=== PATIENT | male | born 1945 | race Caucasian/White ===

== ENCOUNTER 2018-05-23 11:10 | Outpatient (CLI) | payer MEDICARE, MEDICAID, SELFPAY ==
--- NOTE | 2018-05-23 11:00 | DI.RAD_ITS ---
SYMPTOM/DIAGNOSIS: LT SHOULDER PAIN LEFT SHOULDER: Three views. No priors. The left clavicle is superiorly located relative to the acromion consistent with an acromioclavicular ligament tear, type III. There are well corticated osseous fragments inferior to the distal clavicle. These appear old and may represent old injury. There are hypertrophic changes seen at the acromioclavicular joint along the undersurface of the acromion and at the glenohumeral joint. No acute fracture is seen. Vascular calcifications are seen in the soft tissues. Sternal wires are present. There does appear to be a prior CABG. IMPRESSION: Grade III left AC joint separation. Degenerative changes of the left shoulder.
== END 2018-05-23 11:30 ==
PROVIDERS: PCP Family Medicine; Referring Provider Family Medicine; Visit Provider Student in an Organized Health Care Education/Training Program
DX: M25.512 Pain in left shoulder (principal); S43.102A Unspecified dislocation of left acromioclavicular joint, initial encounter; M19.012 Primary osteoarthritis, left shoulder; M75.42 Impingement syndrome of left shoulder; X58.XXXA Exposure to other specified factors, initial encounter; E11.9 Type 2 diabetes mellitus without complications
CPT/HCPCS: 20610; 99204; 99214; 73030; J1040

== ENCOUNTER 2018-07-20 13:43 | Outpatient (REF) | payer MEDICARE, MEDICAID, SELFPAY ==
[2018-07-20 20:09] LABS: Absolute Basophil Count 0.03 k/cumm (0.0-0.2); Absolute Eosinophil Count 0.11 k/cumm (0.0-0.7); Absolute Lymphocyte Count 0.91 k/cumm (1.2-3.4); Absolute Monocyte Count 0.31 k/cumm (0.11-0.7); Absolute Neutrophil Count 3.64 k/cumm (1.2-6.7); Basophils % 0.6; Eosinophils % 2.2; HCT 41.6 % (40.0-50.0); HGB 14.1 g/dL (13.5-17.5); Lymphocytes % 18.2; Mean Corp. HGB Concentration 33.9 g/dL (32.0-36.0); Mean Corpuscular Volume 94.3 fL (80-95); Mean Platelet Volume 10.1 fL (8.0-11.0); Monocytes % 6.2; Neutrophils % 72.8; Platelet Count 147 x1000/uL (130-400); RBC 4.41 m/cumm (4.50-6.00); RBC Distribution Width 13.8 % (11.8-14.1)
[2018-07-20 20:31] LABS: Hemoglobin A1C 6.1 % (4.5-6.2)
[2018-07-20 20:38] LABS: ALT 18 U/L (12-78); AST 16 U/L (15-37); Albumin 3.5 g/dL (3.4-5.0); Alkaline Phosphatase 139 U/L (46-116); Anion Gap 9.3 mmol/L (3-11); BUN 22 mg/dL (7-18); Bilirubin, Total 0.7 mg/dL (0.2-1.0); CO2 27.7 mmol/L (21.0-32.0); CREATININE 1.06 mg/dL (0.70-1.30); Chloride 104 mmol/L (98-107); Glucose 118 mg/dL (70-100); Magnesium 1.7 mg/dL (1.8-2.4); Potassium 4.3 mmol/L (3.5-5.1); Sodium 141 mmol/L (136-145); Total Protein 7.3 g/dL (6.4-8.2)
== END 2018-07-20 14:03 ==
LOC: NCHCN 13:43
PROVIDERS: PCP Family Medicine; Visit Provider Specialist/Technologist Athletic Trainer
DX: D69.6 Thrombocytopenia, unspecified (principal); D63.1 Anemia in chronic kidney disease; I10 Essential (primary) hypertension; E11.42 Type 2 diabetes mellitus with diabetic polyneuropathy
CPT/HCPCS: 80053; 83036; 83735; 85025

== ENCOUNTER → 2018-12-21 08:27 | Outpatient (BNVA) | payer MEDICARE, MEDICAID, SELFPAY | PROVIDERS: PCP Family Medicine; Referring Provider Specialist/Technologist Athletic Trainer; Visit Provider Student in an Organized Health Care Education/Training Program | DX: M75.42 Impingement syndrome of left shoulder (principal); S43.102D Unspecified dislocation of left acromioclavicular joint, subsequent encounter; X58.XXXD Exposure to other specified factors, subsequent encounter | CPT/HCPCS: 99213 ==

== ENCOUNTER 2019-02-13 14:57 | Outpatient (REF) | payer MEDICARE, SELFPAY ==
[2019-02-13 22:01] LABS: Abs Immature Grans 0.01 k/cumm (0.0-0.09); Absolute Basophil Count 0.04 k/cumm (0.0-0.2); Absolute Eosinophil Count 0.16 k/cumm (0.0-0.7); Absolute Monocyte Count 0.31 k/cumm (0.11-0.7); Absolute Neutrophil Count 2.61 k/cumm (1.2-6.7); Eosinophils % 3.9; HGB 14.2 g/dL (13.5-17.5); Immature Grans % 0.2; Lymphocytes % 24.2; Mean Corp. HGB Concentration 33.8 g/dL (32.0-36.0); Mean Corpuscular Hemoglobin 32.1 pg (27.0-33.0); Mean Corpuscular Volume 94.8 fL (80-95); Mean Platelet Volume 10.5 fL (8.0-11.0); Monocytes % 7.5; Neutrophils % 63.2; Platelet Count 123 x1000/uL (130-400); RBC 4.43 m/cumm (4.50-6.00); RBC Distribution Width 14.7 % (11.8-14.1); White Blood Cell Count 4.13 k/cumm (4.4-10.8)
[2019-02-13 22:12] LABS: ALT 13 U/L (12-78); AST 12 U/L (15-37); Albumin 3.5 g/dL (3.4-5.0); Alkaline Phosphatase 150 U/L (46-116); Anion Gap 12.3 mmol/L (3-11); BUN 18 mg/dL (7-18); CO2 24.7 mmol/L (21.0-32.0); CREATININE 1.09 mg/dL (0.70-1.30); Calcium 8.9 mg/dL (8.5-10.1); Chloride 107 mmol/L (98-107); Glucose 90 mg/dL (70-100); HDL Cholesterol 35 mg/dL (40-60); LDL CHOLESTEROL 137 mg/dL (<100); Potassium 4.5 mmol/L (3.5-5.1); Sodium 144 mmol/L (136-145); Total Protein 7.5 g/dL (6.4-8.2)
[2019-02-13 22:47] LABS: Hemoglobin A1C 6.5 % (4.5-6.2)
== END 2019-02-13 15:17 ==
LOC: NCHCN 14:57
PROVIDERS: PCP Family Medicine; Visit Provider Nurse Practitioner Family
DX: I73.9 Peripheral vascular disease, unspecified (principal); E11.42 Type 2 diabetes mellitus with diabetic polyneuropathy; J44.9 Chronic obstructive pulmonary disease, unspecified; N18.3 Chronic kidney disease, stage 3 (moderate); G54.7 Phantom limb syndrome without pain
CPT/HCPCS: 80053; 83721; 83036; 83718; 85025

== ENCOUNTER 2019-02-15 00:25 | Outpatient (CLI) | payer MEDICARE, MEDICAID, SELFPAY ==
--- NOTE | 2019-02-15 07:00 | MERGE_ITS ---
*[facility]* *[facility]* [address] [place] [address] Date of study: 02/15/2019 Transthoracic Echocardiography M-mode, complete 2D, complete spectral Doppler, and color Doppler *STUDY CONCLUSIONS* Summary: 1. Left ventricle: The cavity size was normal. There was mild asymmetric hypertrophy of the septum. Systolic function was severely reduced. The estimated ejection fraction was 25-30%. Diffuse hypokinesis. Akinesis and scarring of the inferolateral and inferior myocardium. Doppler parameters are consistent with high ventricular filling pressure. 2. Aortic valve: A bioprosthesis was present. Peak velocity (S): 2.1m/sec. Mean gradient (S): 11.1mm Hg. 3. Mitral valve: Mildly calcified annulus. Moderately thickened, moderately calcified leaflets. There was mild regurgitation. 4. Left atrium: The atrium was severely dilated. 5. Right ventricle: The cavity size was moderately dilated. Wall thickness was normal. Systolic function was mildly to moderately reduced by visual assessment. 6. Right atrium: The atrium was moderately dilated. 7. Atrial septum: There was a small patent foramen ovale. There was a small kwzp-jt-jcehs shunt. 8. Pulmonary arteries: Pulmonary systolic pressure was severely increased, in the range of 70mm Hg to 75mm Hg. *PATIENT PRESENTATION* Height: 182.9cm (72in ) S/D Pressure: 131 / 81 Weight: 82.6kg (181.6lb ) BSA: 2.05m^2 Test start time: 07:15 AM. Test stop time: 08:20 AM. PERFORMING Unknown PERFORMING Nv REFERRING Robinson Faye MAINTENANCE MECHANIC Kathy Grijalvape, RT (R)(CT), RDCS *PROCEDURE DATA* Procedure information: The patient was identified by two identifiers. This study was interpreted by [facility] [place] [facility]. Pertinent images and digital data are archived for permanent storage and are available for subsequent review. No prior study was available for comparison. Study status: Routine. Transthoracic echocardiography. M-mode, complete 2D, complete spectral Doppler, and color Doppler. A Transthoracic Echocardiogram was performed. Scanning was performed from the parasternal, apical, subcostal, and suprasternal notch acoustic windows. Images were obtained using an [id number] cardiac ultrasound machine. Image quality was adequate. Study completion: The patient tolerated the procedure well. There were no complications. History: PMH: Cardiomyopathy I 25.5. *CARDIAC ANATOMY* Left ventricle: The cavity size was normal. There was mild asymmetric hypertrophy of the septum. Systolic function was severely reduced. The estimated ejection fraction was 25-30%. Diffuse hypokinesis. Regional wall motion abnormalities: Akinesis and scarring of the inferolateral and inferior myocardium. Doppler parameters are consistent with high ventricular filling pressure. Aortic valve: A bioprosthesis was present. Mobility was not restricted. Doppler: Transvalvular velocity was within the normal range. There was no stenosis. There was no significant regurgitation. VTI ratio of LVOT to aortic valve: 0.41. Valve area (VTI): 1.3cm^2. Indexed valve area (VTI): 0.6cm^2/m^2. Peak velocity ratio of LVOT to aortic valve: 0.47. Valve area (Vmax): 1.5cm^2. Indexed valve area (Vmax): 0.7cm^2/m^2. Mean velocity ratio of LVOT to aortic valve: 0.44. Valve area (Vmean): 1.4cm^2. Indexed valve area (Vmean): 0.7cm^2/m^2. Mean gradient (S): 11.1mm Hg. Peak gradient (S): 17.2mm Hg. Aorta: Aortic root: The aortic root was at upper normal limits. Ascending aorta: The ascending aorta was normal in size. Mitral valve: Mildly calcified annulus. Moderately thickened, moderately calcified leaflets. Mobility was not restricted. Doppler: Transvalvular velocity was within the normal range. There was no evidence for stenosis. There was mild regurgitation. Valve area by pressure half-time: 4.5cm^2. Indexed valve area by pressure half-time: 2.2cm^2/m^2. Peak gradient (D): 6.8mm Hg. Left atrium: The atrium was severely dilated. Atrial septum: There was a small patent foramen ovale. There was a small [id number]-[id number] shunt. Right ventricle: The cavity size was moderately dilated. Wall thickness was normal. Systolic function was mildly to moderately reduced by visual assessment. Pulmonic valve: Structurally normal valve. Doppler: Transvalvular velocity was within the normal range. There was no evidence for stenosis. There was mild regurgitation. Peak gradient (S): 19.5mm Hg. Tricuspid valve: Structurally normal valve. Doppler: Transvalvular velocity was within the normal range. There was no evidence for stenosis. There was mild regurgitation. Pulmonary artery: Pulmonary systolic pressure was severely increased, in the range of 70mm Hg to 75mm Hg. Right atrium: The atrium was moderately dilated. Pericardium: There was no pericardial effusion. Systemic veins: Inferior vena cava: Well visualized. The vessel was patent and normal in size. The respirophasic diameter changes were blunted (less than 50%). Measurements Left ventricle Value Reference LV ID, ED, PLAX 5.3 cm 3.5 - 6.0 LV ID, ES, PLAX (H) 4.6 cm 2.1 - 4.0 LV PW thickness, ED, PLAX 0.8 cm LV end-diastolic volume, 1-p A2C 139 ml LV ejection fraction, 1-p A2C 27 % LV end-diastolic volume, 1-p A4C 127 ml LV ejection fraction, 1-p A4C 31 % LV e', lateral 0.054 m/sec LV E/e', lateral 24 LV e', medial 0.048 m/sec LV E/e', medial 27 LV e', average 0.051 m/sec LV E/e', average 26 Ventricular septum Value Reference IVS thickness, ED, PLAX 1.3 cm LVOT Value Reference LVOT ID, A-P 2.0 cm LVOT area 3.2 cm^2 LVOT peak velocity, S 0.98 m/sec LVOT mean velocity, S 0.71 m/sec LVOT VTI, S 21.5 cm LVOT peak gradient, S 3.8 mm Hg LVOT mean gradient, S 2.3 mm Hg Stroke volume (SV), LVOT DP 69 ml Stroke index (SV/bsa), LVOT DP 33 ml/m^2 Aortic valve Value Reference Aortic valve peak velocity, S 2.1 m/sec Aortic valve mean velocity, S 1.6 m/sec Aortic valve VTI, S 52.0 cm Aortic mean gradient, S 11.1 mm Hg Aortic peak gradient, S 17.2 mm Hg VTI ratio, LVOT/AV 0.41 Aortic valve area, VTI 1.3 cm^2 Velocity ratio, peak, LVOT/AV 0.47 Aortic valve area, peak velocity 1.5 cm^2 Velocity ratio, mean, LVOT/AV 0.44 Aortic valve area, mean velocity 1.4 cm^2 Aortic valve area/bsa, mean velocity 0.7 cm^2/m^2 Aorta Value Reference Aortic root ID, ED 3.7 cm Ascending aorta ID, A-P, S 3.4 cm RVOT Value Reference RVOT VTI, S 13.4 cm Left atrium Value Reference LA ID, A-P, ES 5.4 cm LA ID/bsa, A-P (H) 2.6 cm/m^2 <=2.2 LA volume/bsa, ES, 1-p A4C 50 ml/m^2 LA volume, ES, 2-p 102 ml LA volume/bsa, ES, 2-p 50 ml/m^2 LA/aortic root ratio 1.43 Mitral valve Value Reference Mitral E-wave peak velocity 1.3 m/sec Mitral A-wave peak velocity 0.39 m/sec Mitral deceleration time 170 ms 150 - 230 Mitral pressure half-time 49 ms Mitral peak gradient, D 6.8 mm Hg Mitral E/A ratio, peak 3.38 Mitral valve area, PHT, DP 4.5 cm^2 Pulmonary veins Value Reference Pulmonary vein peak velocity, S 0.15 m/sec Pulmonary vein peak velocity, D 0.65 m/sec Pulmonary vein velocity ratio, peak, 0.24 S/D Tricuspid valve Value Reference Tricuspid regurg peak velocity 4.1 m/sec Tricuspid peak RV-RA gradient 66.4 mm Hg Right atrium Value Reference RA area, ES, A4C (H) 23.3 cm^2 8.3 - 19.5 Pulmonic valve Value Reference Pulmonic peak gradient, S 19.5 mm Hg Pulmonic regurg velocity, ED 2.21 m/sec Pulmonic regurg gradient, ED 20 mm Hg Legend: (L) and (H) good values outside specified reference range. I have personally reviewed the images and have reviewed and edited the reported findings. Electronically signed by Chance Boykin 02/15/2019 11:12
== END 2019-02-15 00:45 ==
PROVIDERS: PCP Nurse Practitioner Family; Visit Provider Specialist/Technologist Athletic Trainer
DX: I25.5 Ischemic cardiomyopathy (principal); I10 Essential (primary) hypertension; E78.5 Hyperlipidemia, unspecified; E11.9 Type 2 diabetes mellitus without complications; Z95.2 Presence of prosthetic heart valve
CPT/HCPCS: 93306

== ENCOUNTER 2019-03-08 15:06 | Outpatient (REF) | payer MEDICARE, MEDICAID, SELFPAY ==
[2019-03-08 22:47] LABS: ALT 17 U/L (12-78); AST 11 U/L (15-37); Albumin 3.5 g/dL (3.4-5.0); Alkaline Phosphatase 146 U/L (46-116); Anion Gap 10.3 mmol/L (3-11); BUN 25 mg/dL (7-18); Bilirubin, Direct 0.37 mg/dL (0.00-0.20); CO2 24.7 mmol/L (21.0-32.0); CREATININE 1.17 mg/dL (0.70-1.30); Calcium 9.2 mg/dL (8.5-10.1); Chloride 108 mmol/L (98-107); Glucose 148 mg/dL (70-100); Lipase 44 U/L (73-393); Potassium 4.3 mmol/L (3.5-5.1); Sodium 143 mmol/L (136-145); Total Protein 7.3 g/dL (6.4-8.2)
[2019-03-08 22:52] LABS: Abs Immature Grans 0.01 k/cumm (0.0-0.09); Absolute Basophil Count 0.03 k/cumm (0.0-0.2); Absolute Eosinophil Count 0.07 k/cumm (0.0-0.7); Absolute Lymphocyte Count 0.73 k/cumm (1.2-3.4); Absolute Monocyte Count 0.47 k/cumm (0.11-0.7); Absolute Neutrophil Count 5.31 k/cumm (1.2-6.7); Basophils % 0.5; Eosinophils % 1.1; HCT 42.8 % (40.0-50.0); HGB 14.3 g/dL (13.5-17.5); Immature Grans % 0.2; Mean Corp. HGB Concentration 33.4 g/dL (32.0-36.0); Mean Corpuscular Hemoglobin 32.2 pg (27.0-33.0); Mean Corpuscular Volume 96.4 fL (80-95); Monocytes % 7.1; Neutrophils % 80.1; Platelet Count 122 x1000/uL (130-400); RBC 4.44 m/cumm (4.50-6.00); RBC Distribution Width 14.7 % (11.8-14.1); White Blood Cell Count 6.62 k/cumm (4.4-10.8)
== END 2019-03-08 15:26 ==
LOC: NCHCN 15:06
PROVIDERS: PCP Nurse Practitioner Family; Visit Provider Nurse Practitioner Family
DX: R10.9 Unspecified abdominal pain (principal)
CPT/HCPCS: 80048; 80076; 83690; 85025

== ENCOUNTER → 2019-03-22 12:45 | Outpatient (BNVA) | payer MEDICARE, MEDICAID, SELFPAY | PROVIDERS: PCP Nurse Practitioner Family; Visit Provider Student in an Organized Health Care Education/Training Program | DX: I25.5 Ischemic cardiomyopathy (principal); I50.22 Chronic systolic (congestive) heart failure; I25.10 Atherosclerotic heart disease of native coronary artery without angina pectoris; Z95.5 Presence of coronary angioplasty implant and graft; Z95.1 Presence of aortocoronary bypass graft; I73.9 Peripheral vascular disease, unspecified; I11.0 Hypertensive heart disease with heart failure; Z72.0 Tobacco use; E11.42 Type 2 diabetes mellitus with diabetic polyneuropathy; E78.2 Mixed hyperlipidemia; J44.9 Chronic obstructive pulmonary disease, unspecified | CPT/HCPCS: 99205; 99215 ==

== ENCOUNTER 2019-03-27 00:09 | Outpatient (CLI) | payer MEDICARE, SELFPAY ==
--- NOTE | 2019-03-27 07:03 | DI.NM_ITS ---
SYMPTOMS/DIAGNOSIS: ISCHEMIC CARDIOMYOPATHY, I25.5 MPI STRESS TEST: Please see report dated 03/30/19 for complete results of this examination. The MPI was performed in two days 03/27/19 and 03/30/19.
== END 2019-03-27 00:29 ==
PROVIDERS: PCP Nurse Practitioner Family; Visit Provider Student in an Organized Health Care Education/Training Program
DX: I25.5 Ischemic cardiomyopathy (principal); I25.2 Old myocardial infarction; R94.30 Abnormal result of cardiovascular function study, unspecified; Z95.3 Presence of xenogenic heart valve

== ENCOUNTER 2019-03-30 00:09 | Outpatient (CLI) | payer MEDICARE, MEDICAID, SELFPAY ==
--- NOTE | 2019-03-30 09:30 | MERGEMPI_ITS ---
*[facility]* *[facility]* [address] [place] [address] Myocardial Perfusion Imaging - SPECT Regadenoson Date of study: 03/30/2019 *PATIENT PRESENTATION* Height: 182.9cm (72in) Blood Pressure: Weight: 86.4kg (190lb) BSA: 2.1m^2 Referring physician: Chance Boykin Ordering physician: Chance Boykin Impressions: Abnormal study after pharmacologic stress. Summary: 1. Myocardial perfusion imaging: There is a moderate sized, moderately intense, predominantly fixed defect involving the inferolateral wall(s). This suggests moderate myocardial infarction in the distribution of the left circumflex coronary artery. 2. The calculated left ventricular ejection fraction after stress: 19%. LV global systolic function is severely reduced. Diffuse left ventricular regional motion abnormalities. There is hypokinesis involving the inferior and inferolateral wall(s) of the left ventricle. Indication: I25.5. History: REASON FOR TESTING: REFERRED AFTER ECHO SHOWING POOR HEART EF. PMH: NSTEMI WITH CABG X3V AND STENTING- EF 25-30%, PVD, AORTIC VALVE REPLACENENT, XENOGENIC HEART VALVE, HYPERTENSION, DIABETES WITH POLYNEUROPATHY, HYPERLIPIDEMIA, CKD WITH ANEMIA, ASHD, CARDIOMYOPATHY-ISCHEMIC AND DILATED, COPD, DEPRESSION, OSTEOMYELITIS, RIGHT BELOW THE KNEE AMPUTATION, THROMBOCYTOPENIA. FAMILY HX: BROTHER-ENLARGED HEART. SMOKING: CURRENT DAILY SMOKER 1/2 PPD X 64 YEARS. EXCERCISE: NO REGULAR EXCERCISE. PMH: COPD. Risk factors: Current tobacco use. Hypertension. Diabetes mellitus. Dyslipidemia. Cholesterol: 133mg/dl. HDL: 35mg/dl. LDL: 137mg/dl. Triglycerides: 108mg/dl. Peripheral vascular disease. ALLERGIES: SULFA MEDICATIONS: ASPIRIN 81 MG DAILY, BUMETANIDE 2 MG DAILY, CARVEDILOL 12.5 MG BID, NABUMETONE 500 MG BID, NITROGLYCERIN0.4 MG SL NEEDED, OXYCODONE 5 MG Q4H PRN, ASCORBIC ACID 500 MG DAILY, GABAPENTIN 300 MG DAILY, LOSARTAN 12.5 MG DAILY, OMEPRAZOLE 40 MG DAILY, POLYETHYLENE GLYCOL 17 GM DAILY, ROSUVSTATIN 20 MG HS. Imaging Technique: Protocol: Regadenoson. Acquisition: Gated SPECT; 1 day - rest/stress. The patient was imaged in the supine position. Attenuation correction used. Isotope administration: - Rest. Tc[99m]-sestamibi. Dose: 10.4mCi. Injection time: 08:35 AM. Injection to stress time: 00:45. - Stress. Tc[99m]-sestamibi. Dose: 33mCi. Injection time: 09:45 AM. 1-2 min before end of exercise Baseline ECG: LAST EKG 07/03/2017- SINUS RHYTHM HR 92. TODAY'S EKG-SINUS RHYTHM 1ST DEGREE BLOCK. HR 73. Stress protocol: +--------+--+ + + !Stage !HR!BP (mmHg) !Comments ! +--------+--+ + + !Baseline!73!124/80 (95)! ! +--------+--+ + + !1 min !71!118/78 (91)!Inject Regadenoson.! +--------+--+ + + !3 min !79!110/70 (83)! ! +--------+--+ + + !6 min !79!102/74 (83)! ! +--------+--+ + + !9 min !78!100/70 (80)! ! +--------+--+ + + * Stress results: The rate-pressure product for the peak heart rate and blood pressure was 9052mm Hg/min. Stress ECG: MEDICATION TESTING ENDED IN 9 MINS EFFECT OF MEDICATION NO LONGER PRESENT. MAX HR WAS 81, WITH A NORMAL BLOOD PRESSURE REPSONSE. ECTOPY: MULTI- FOCAL PVC'S NOTED THROUGHOUT THE TEST. NO CHANGE NOPTED IN FREQUENCY. ANGINA: NO REPORTED CHEST PAIN OR PRESSURE. ISCHEMIA: NO ISCHEMIC CHANGES NOTED. Myocardial perfusion: Imaging information: gated. The left ventricle is dilated. There is a moderate sized, moderately intense, predominantly fixed defect involving the inferolateral wall(s). This suggests moderate myocardial infarction in the distribution of the left circumflex coronary artery. Ventricular Function (Wall Motion): The calculated left ventricular ejection fraction after stress: 19%. LV global systolic function is severely reduced. Diffuse left ventricular regional motion abnormalities. There is hypokinesis involving the inferior and inferolateral wall(s) of the left ventricle. Study data: Paola Segundo MD supervised and was readily available during the procedure. This study was interpreted by [facility]. Study status: Routine. Consent: The risks, benefits, and alternatives to the procedure were explained to the patient and informed consent was obtained. Procedure: Initial setup. A baseline ECG was recorded. Surface ECG leads and manual cuff blood pressure measurements were monitored. Heart sounds: Normal. Lung sounds: Normal. Regadenoson stress test. Stress testing was performed, with regadenoson by intravenous bolus, for a total dose of 0.4mgover 10.00sec, followed by a 5ml saline flush. The infusion was terminated due to per protocol. The patient was unable to exercise due to deconditioning and or frailty. Study completion: All catheters inserted during the procedure were removed. The patient tolerated the procedure well and was discharged from the lab. Discharge: The patient left the laboratory in stable condition. Birthdate: Patient birthdate: 1945. Sex: Gender: male. Study date: Study date: 03/30/2019. Study time: 00:01 AM. Signature Documentation: - The imaging portion of this study was interpreted by Nuclear Bag Machine Set Up Operator Paola Segundo MD. - The imaging portion of this study was interpreted by Nuclear Radiologist Delroy Graf MD. - The Stress ECG portion of this study was interpreted by Paola Segundo MD. Electronically signed by Paola Segundo 03/30/2019 15:30
[2019-03-30] MEDS: Regadenoson 0.4 MG/5 ML SYR IVP (12:38)
== END 2019-03-30 00:29 ==
PROVIDERS: PCP Nurse Practitioner Family; Visit Provider Student in an Organized Health Care Education/Training Program
DX: I25.5 Ischemic cardiomyopathy (principal); R94.30 Abnormal result of cardiovascular function study, unspecified; I25.2 Old myocardial infarction; Z95.3 Presence of xenogenic heart valve; I50.22 Chronic systolic (congestive) heart failure; I10 Essential (primary) hypertension; E78.5 Hyperlipidemia, unspecified; F17.200 Nicotine dependence, unspecified, uncomplicated
CPT/HCPCS: 78452; 93016; 93018; 93017; J2785

== ENCOUNTER → 2019-04-05 09:48 | Outpatient (BNVA) | payer MEDICARE, MEDICAID, SELFPAY | PROVIDERS: PCP Nurse Practitioner Family; Visit Provider Student in an Organized Health Care Education/Training Program | DX: I25.5 Ischemic cardiomyopathy; Z95.5 Presence of coronary angioplasty implant and graft; I73.9 Peripheral vascular disease, unspecified; Z95.3 Presence of xenogenic heart valve; I10 Essential (primary) hypertension; E11.42 Type 2 diabetes mellitus with diabetic polyneuropathy; E78.5 Hyperlipidemia, unspecified; Z66 Do not resuscitate; J44.9 Chronic obstructive pulmonary disease, unspecified | CPT/HCPCS: 99214 ==

== ENCOUNTER → 2019-05-19 08:42 | Outpatient (BNVA) | payer MEDICARE, MEDICAID, SELFPAY | PROVIDERS: PCP Nurse Practitioner Family; Referring Provider Nurse Practitioner Family; Visit Provider Internal Medicine Cardiovascular Disease | DX: I25.5 Ischemic cardiomyopathy (principal); E11.42 Type 2 diabetes mellitus with diabetic polyneuropathy; I12.9 Hypertensive chronic kidney disease with stage 1 through stage 4 chronic kidney disease, or unspecified chronic kidney disease; N18.9 Chronic kidney disease, unspecified; E11.22 Type 2 diabetes mellitus with diabetic chronic kidney disease; J44.9 Chronic obstructive pulmonary disease, unspecified | CPT/HCPCS: 99204; 99215 ==

== ENCOUNTER 2019-06-20 10:13 | Outpatient (REF) | payer MEDICARE, MEDICAID, SELFPAY ==
[2019-06-20 21:59] LABS: Abs Immature Grans 0.01 k/cumm (0.0-0.09); Absolute Basophil Count 0.03 k/cumm (0.0-0.2); Absolute Eosinophil Count 0.15 k/cumm (0.0-0.7); Absolute Lymphocyte Count 0.86 k/cumm (1.2-3.4); Absolute Monocyte Count 0.38 k/cumm (0.11-0.7); Absolute Neutrophil Count 3.02 k/cumm (1.2-6.7); Basophils % 0.7; Eosinophils % 3.4; HCT 40.3 % (40.0-50.0); HGB 13.4 g/dL (13.5-17.5); Immature Grans % 0.2; Lymphocytes % 19.3; Mean Corp. HGB Concentration 33.3 g/dL (32.0-36.0); Mean Corpuscular Hemoglobin 31.6 pg (27.0-33.0); Mean Platelet Volume 10.7 fL (8.0-11.0); Monocytes % 8.5; Neutrophils % 67.9; Platelet Count 117 x1000/uL (130-400); RBC 4.24 m/cumm (4.50-6.00); RBC Distribution Width 14.7 % (11.8-14.1); White Blood Cell Count 4.45 k/cumm (4.4-10.8)
[2019-06-20 22:28] LABS: Iron 104 ug/dL (50-175); Total Iron Binding Capacity 253 ug/dL (250-450); Transferrin Sat 41 % (20-55)
== END 2019-06-20 10:33 ==
LOC: NCHCN 10:13
PROVIDERS: PCP Nurse Practitioner Family; Visit Provider Nurse Practitioner Family
DX: E11.42 Type 2 diabetes mellitus with diabetic polyneuropathy (principal); G54.6 Phantom limb syndrome with pain; L98.9 Disorder of the skin and subcutaneous tissue, unspecified; L29.9 Pruritus, unspecified
CPT/HCPCS: 83540; 83550; 85025

== ENCOUNTER → 2019-10-16 09:46 | Outpatient (BNVA) | payer MEDICARE, MEDICAID, SELFPAY | PROVIDERS: PCP Nurse Practitioner Family; Referring Provider Nurse Practitioner Family; Visit Provider Internal Medicine Cardiovascular Disease | DX: I25.5 Ischemic cardiomyopathy (principal); Z95.5 Presence of coronary angioplasty implant and graft; Z95.1 Presence of aortocoronary bypass graft; E11.42 Type 2 diabetes mellitus with diabetic polyneuropathy; E11.22 Type 2 diabetes mellitus with diabetic chronic kidney disease; N18.3 Chronic kidney disease, stage 3 (moderate); I12.9 Hypertensive chronic kidney disease with stage 1 through stage 4 chronic kidney disease, or unspecified chronic kidney disease | CPT/HCPCS: 99214 ==

== ENCOUNTER 2019-12-15 09:16 | Outpatient (REF) | payer MEDICARE, MEDICAID, SELFPAY ==
[2019-12-15 18:57] LABS: HCT 40.3 % (40.0-50.0); HGB 13.2 g/dL (13.5-17.5); Mean Corp. HGB Concentration 32.8 g/dL (32.0-36.0); Mean Corpuscular Hemoglobin 32.2 pg (27.0-33.0); Mean Corpuscular Volume 98.3 fL (80-95); Mean Platelet Volume 10.2 fL (8.0-11.0); Platelet Count 107 x1000/uL (130-400); RBC Distribution Width 13.5 % (11.8-14.1); White Blood Cell Count 4.76 k/cumm (4.4-10.8)
[2019-12-15 19:36] LABS: ALT 37 U/L (16-63); AST 32 U/L (15-37); Albumin 3.4 g/dL (3.4-5.0); Alkaline Phosphatase 169 U/L (46-116); BUN 26 mg/dL (7-18); Bilirubin, Total 1.1 mg/dL (0.2-1.0); Calcium 8.7 mg/dL (8.5-10.1); Chloride 106 mmol/L (98-107); Estimated GFR 53.82 (mL/min/1.73m2); Ferritin 159 ng/mL (26-388); Glucose 115 mg/dL (74-106); Potassium 4.5 mmol/L (3.5-5.1); Sodium 142 mmol/L (136-145); TSH 2.77 uIU/mL (0.36-3.74); Total Protein 7.4 g/dL (6.4-8.2)
== END 2019-12-15 09:36 ==
LOC: NCHCN 09:16
PROVIDERS: PCP Nurse Practitioner Family; Visit Provider Nurse Practitioner Family
DX: N18.4 Chronic kidney disease, stage 4 (severe) (principal); D63.1 Anemia in chronic kidney disease; L29.9 Pruritus, unspecified; R89.9 Unspecified abnormal finding in specimens from other organs, systems and tissues; E11.22 Type 2 diabetes mellitus with diabetic chronic kidney disease
CPT/HCPCS: 80053; 85027; 82728; 84443

== ENCOUNTER 2019-12-17 07:10 | Inpatient (IN) | payer MEDICARE, MEDICAID, SELFPAY ==
[2019-12-17 07:13] VITALS: BP 116/64; PULSE 86; RESP 18; TEMP 36.4; O2SAT 92
--- NOTE | 2019-12-17 07:15 | DI.RAD_ITS ---
EXAM: XR ELBOW LT LIMITED CLINICAL HISTORY: pain s/p fall TECHNIQUE: 2D digital imaging was performed. COMPARISON: No exams were available for comparison FINDINGS: Exam is limited by overlying material. The positioning is suboptimal. No fracture is visible. Vasc ular calcifications are seen. IMPRESSION: Extremely limited exam. No gross evidence of fracture or dislocation.
--- NOTE | 2019-12-17 07:18 | ED.GENADUL_ITS ---
Discharge Plan Disposition Patient Disposition: [facility] INPATIENT Condition: Stable Discharge Details Chief Complaint: Orthopedic Clinical Impression: Fracture of humerus, left, closed Admit Date/Time: 12/17/19 08:57 Admit Provider: Jhon Darnell Attending Provider: Jhon Darnell Primary Care Provider: Ashley Spain ED Provider: Delroy Rangel Discharge Data Discharge Date/Time-TO BE ENTERED AT DEPARTURE: 12/17/19 09:58 Medical Decision Making <Lester Nieto MD - Last Filed: 12/17/19 07:25> 74 yo male with hx of cad s/p cabg, htn, pvd, smoker, who comes in with cc of left arm pain. He uses a wheel chair and states his mattress of his bed was hanging over the edge of the frame so when he tried to sit on it last night around 10pm he fell and landed on his left arm. EMS came and he declined transport at that time. He denies head trauma, loc or preceding symptoms such as lightheadedness or chest pain, states it was purely mechanical. This morning he was having more pain so he called ems again and came here for an evaluation. He denies head pain, neck pain, abdominal pain, dyspnea or chest pain. He has swelling of the left shoulder and a superficial skin tear thats about 3cm over lateral elbow. Pain in the left shoulder with limited rom. Normal distal sensation and pulses and full rom of the hand and wrist, no pain in the forearm. Will obtain xrays and reevaluate. He does note he doesn't feel he can go home with his arm like this so will likely need care management patient signed out pending radiology interpretations and also likely care management inovlvement Differential Diagnosis Differential Diagnosis: fracture, dislocation <Delroy Rangel MD - Last Filed: 12/17/19 10:11> 74-year-old male signed out to me by Dr. Nieto, please see his note regarding details of the initial presentation, exam, plan of care. In brief, this is a 74-year-old man who lives in [place], [place] with his elderly . He has had previous right leg below the knee amputation and left leg partial foot amputation. He typically uses a wheelchair and transfers with a prosthetic on his right leg with use of his upper body. He fell last night while transferring to bed. He is no longer able to transfer due to pain in left upper extremity. Indeed he has a left proximal humerus fracture, no evidence of other injury. Placed in explain. Screening laboratories were obtained. Unable to return to home due to need for acute convalescence and rehab. Case discussed with care management who are unable to place the patient as today is Wednesday. Case discussed with Dr. Pike as well. Patient's medications were reconciled with his over the phone by our nursing staff. She specifically said he has not been taking bumetanide. The patient was given additional parenteral analgesia. Case was discussed by care management with the [facility] and rehab facilities who do not have availability for placement today. Out of an abundance of caution a screening chest x-ray and COVID screening will be obtained as part of the patient's admission. Lab Data Lab results reviewed: Yes I reviewed the patient's lab results. Labs: Laboratory Results - last 24 hr 12/17/19 12/17/19 08:40 08:40 WBC 5.85 RBC 3.69 L Hgb 12.1 L Hct 36.1 L MCV 97.8 H MCH 32.8 MCHC 33.5 RDW 13.6 Plt Count 102 L MPV 9.5 Immature Gran % 0.2 Neutrophils % 81.3 Lymphocytes % 8.7 Monocytes % 8.7 Eosinophils % 0.9 Basophils % 0.2 Absolute Neutrophils 4.76 Absolute Lymphocytes 0.51 L Absolute Monocytes 0.51 Absolute Eosinophils 0.05 Absolute Basophils 0.01 Sodium 139 Potassium 4.4 Chloride 107 Carbon Dioxide 23.5 Anion Gap 8.5 BUN 28 H Creatinine 1.21 Estimated GFR/1.73 m2 58.46 Glucose 138 H Calcium 8.2 L Total Bilirubin 0.8 AST 25 ALT 33 Alkaline Phosphatase 158 H Total Protein 7.2 Albumin 3.2 L ECG Data Attestation: I personally reviewed and interpreted this ECG (s) as follows: Interpretation: EKG reveals a sinus rhythm with a rate of 82 first-degree AV block, nonspecific ST segment changes without evidence of ST elevation, there is no comparison available in [facility]. HPI <Lester Nieto MD - Last Filed: 12/17/19 07:25> General Mode of arrival: EMS . Date/Time Provider Initiated Documentation: 12/17/19 07:16 . Limitations to Documentation: no limitations . Information obtained by: patient . History of Present Illness 74 year old M presents to the emergency department with the chief complaint of left arm pain, described as moderate and severe, Patient started experiencing this day(s) (1) and it has been constant. Rest improves symptom(s), Patient notes no other symptoms.. Related Data Home Medications Medication Instructions Recorded Confirmed aspirin 81 mg chewable tablet 81 mg PO HS 05/23/18 12/17/19 oxycodone 5 mg tablet 5 mg PO Q4H PRN tab 12/21/18 12/17/19 ascorbic acid (vitamin C) 500 mg 500 mg PO DAILY 03/22/19 12/17/19 tablet polyethylene glycol 3350 17 17 gm PO DAILY 03/22/19 12/17/19 gram/dose oral powder losartan 25 mg tablet 25 mg PO DAILY #30 tab 04/05/19 12/17/19 carvedilol 25 mg tablet 25 mg PO Q12H #180 tab 05/19/19 12/17/19 nitroglycerin 0.4 mg sublingual 0.4 mg SL ONCE PRN #14 tab 05/19/19 12/17/19 tablet rosuvastatin 20 mg PO DAILY 12/17/19 12/17/19 Previous Rx's Medication Instructions Recorded losartan 25 mg tablet 25 mg PO DAILY #30 tab 04/05/19 carvedilol 25 mg tablet 25 mg PO Q12H #180 tab 05/19/19 nitroglycerin 0.4 mg sublingual 0.4 mg SL ONCE PRN #14 tab 05/19/19 tablet Allergies Allergy/AdvReac Type Severity Reaction Status Date / Time Sulfa (Sulfonamide Allergy Severe ANAPHYLAXIS Verified 12/17/19 07:23 Antibiotics) cephalexin Allergy Mild per Unverified 12/17/19 08:04 Pcp chart vancomycin Allergy Critical Unverified 12/17/19 08:04 by PCP chart Review of Systems <Lester Nieto MD - Last Filed: 12/17/19 07:25> All systems reviewed & are unremarkable except as noted in HPI and below Constitutional Constitutional: Denies chills, Denies fever(s) and Denies weakness Cardiovascular Cardiovascular: Denies chest pain and Denies dyspnea Respiratory Respiratory: Denies cough and Denies dyspnea Gastrointestinal Gastrointestinal: Denies abdominal pain, Denies nausea and Denies vomiting Musculoskeletal Musculoskeletal: Denies joint swelling Neurologic Neurologic: Denies weakness PFSH <Lester Nieto MD - Last Filed: 12/17/19 07:25> Social History (Updated 10/16/19 @ 09:58 by Stephanie Sims RN) Smoking/Tobacco Use Status: Current every day Tobacco Type: cigarettes Years smoked: 63 Counseling given: patient declined Alcohol Intake: current Alcohol Intake frequency: a few times a week Alcohol type: wine Drug use: Never Substance use type: does not use Additional Social history: lives Exam <Lester Nieto MD - Last Filed: 12/17/19 07:25> Const General: no acute distress Orientation: alert HENMT Head: normal to inspection Ears: external ears normal General nose exam: external nose normal Mouth: moist mucous membranes Eyes General: appearance normal, both eyes and all related structures Neck Neck: normal visual inspection Resp Effort & Inspection: normal respiratory effort and able to speak in complete sentences Cardio Rate: regular rate Skin General skin exam: elasticity normal Neuro General: patient alert and patient oriented x3 Extrem General: capillary refill normal Psych Mental Status: mental status grossly normal Sign Out <Lester Nieto MD - Last Filed: 12/17/19 07:25> Sign Out Data: Sign Out Comment: xrays and care management Last updated by Lester Nieto MD at 12/17/19 07:28
[2019-12-17] MEDS: oxyCODONE 5 MG TAB PO ×3 (07:54→23:54)
--- NOTE | 2019-12-17 07:55 | DI.RAD_ITS ---
EXAM: XR HUMERUS LT CLINICAL HISTORY: pain s/p fall TECHNIQUE: 2D digital imaging was performed. COMPARISON: No exams were available for comparison FINDINGS: There is a fracture of the humeral head with extension into the proximal humeral shaft. No fractures are seen more distally. There is no evidence of dislocation. Vascular calcifications are seen. IMPRESSION: Proximal humeral fracture.
--- NOTE | 2019-12-17 07:55 | DI.RAD_ITS ---
EXAM: XR SHOULDER LT COMPLETE 2+V XR SHOULDER LT COMPLETE 2+V CLINICAL HISTORY: pain s/p fall TECHNIQUE: 2D digital imaging was performed. COMPARISON: XR shoulder LT complete 2+V from 05/23/2018 FINDINGS: There is a mildly displaced fracture of the humeral head which involves the greater tuberosity. The re is some extension into the proximal humeral shaft. There is no evidence of dislocation. There is an old distal clavicle deformity. Degenerative changes are seen at the glenohumeral joint. Sternal wires are noted. IMPRESSION: Mildly displaced comminuted fracture of the humeral head.
--- NOTE | 2019-12-17 08:04 | DI.VRAD_ITS ---
PROCEDURE INFORMATION: Exam: XR Left Elbow Exam date and time: 12/17/2019 7:45 AM Age: 74 years old Clinical indication: Other: Pain, S/P fall TECHNIQUE: Imaging protocol: XR Left elbow, lateral and oblique views. Views: 1 or 2 views. COMPARISON: No relevant prior studies available. FINDINGS: Bones/joints: Normal. Soft tissues: Normal. Vasculature: Atherosclerotic disease. IMPRESSION: No acute findings. Dictated and Authenticated by: Gabriela Gordillo MD. Ordering:ALEK Batista MD
--- NOTE | 2019-12-17 08:07 | DI.VRAD_ITS ---
PROCEDURE INFORMATION: Exam: XR Left Shoulder Exam date and time: 12/17/2019 7:36 AM Age: 74 years old Clinical indication: Other: Pain, S/P fall TECHNIQUE: Imaging protocol: XR Left shoulder. Views: 2 or more views. COMPARISON: Left shoulder x-ray report 05/24/2018. FINDINGS: Bones/joints: There is a comminuted minimally displaced fracture involving the humeral neck and greater tuberosity. No dislocation. Mild degenerative changes are seen in the glenohumeral joint with narrowing and early osteophyte formation. The left clavicle is superiorly dislocated as previously described consistent with grade 3 joint separation. As previously noted there are hypertrophic changes along the inferior aspect of the distal clavicle. Sternotomy. Vasculature: Atherosclerotic disease. Soft tissues: Mild soft tissue swelling around the shoulder. IMPRESSION: 1. Acute minimally displaced fracture of the left humeral neck and greater tuberosity. 2. No dislocation. 3. Chronic grade 3 left AC joint separation. 4. Degenerative changes in the left shoulder. Dictated and Authenticated by: Gabriela Gordillo MD. Ordering:ALEK Batista MD
--- NOTE | 2019-12-17 08:08 | DI.VRAD_ITS ---
PROCEDURE INFORMATION: Exam: XR Left Humerus Exam date and time: 12/17/2019 7:43 AM Age: 74 years old Clinical indication: Other: Pain, S/P fall TECHNIQUE: Imaging protocol: XR Left humerus Views: 2 or more views. COMPARISON: No relevant prior studies available. FINDINGS: Bones/joints: Mildly displaced fracture of the left humeral neck and greater tuberosity. Mild degenerative changes in the glenohumeral joint. Soft tissues: Soft tissue swelling around the shoulder. IMPRESSION: Mildly displaced fracture of the left humeral neck and greater tuberosity. Dictated and Authenticated by: Gabriela Gordillo MD. Ordering:ALEK Batista MD
[2019-12-17] MEDS: Ketorolac 15 MG/ML VIAL IVP (08:34)
[2019-12-17 08:49] LABS: Abs Immature Grans 0.01 k/cumm (0.0-0.09); Absolute Basophil Count 0.01 k/cumm (0.0-0.2); Absolute Eosinophil Count 0.05 k/cumm (0.0-0.7); Absolute Lymphocyte Count 0.51 k/cumm (1.2-3.4); Absolute Monocyte Count 0.51 k/cumm (0.11-0.7); Absolute Neutrophil Count 4.76 k/cumm (1.2-6.7); Basophils % 0.2; Eosinophils % 0.9; HCT 36.1 % (40.0-50.0); HGB 12.1 g/dL (13.5-17.5); Immature Grans % 0.2 %; Lymphocytes % 8.7; Mean Corp. HGB Concentration 33.5 g/dL (32.0-36.0); Mean Corpuscular Hemoglobin 32.8 pg (27.0-33.0); Mean Corpuscular Volume 97.8 fL (80-95); Mean Platelet Volume 9.5 fL (8.0-11.0); Monocytes % 8.7; Neutrophils % 81.3; Platelet Count 102 x1000/uL (130-400); RBC 3.69 m/cumm (4.50-6.00); RBC Distribution Width 13.6 % (11.8-14.1); White Blood Cell Count 5.85 k/cumm (4.4-10.8)
[2019-12-17 09:02] LABS: ALT 33 U/L (16-63); AST 25 U/L (15-37); Albumin 3.2 g/dL (3.4-5.0); Alkaline Phosphatase 158 U/L (46-116); Anion Gap 8.5 mmol/L (3-11); BUN 28 mg/dL (7-18); Bilirubin, Total 0.8 mg/dL (0.2-1.0); CO2 23.5 mmol/L (21.0-32.0); CREATININE 1.21 mg/dL (0.70-1.30); Calcium 8.2 mg/dL (8.5-10.1); Chloride 107 mmol/L (98-107); Estimated GFR 58.46 (mL/min/1.73m2); Glucose 138 mg/dL (74-106); Potassium 4.4 mmol/L (3.5-5.1); Sodium 139 mmol/L (136-145); Total Protein 7.2 g/dL (6.4-8.2)
--- NOTE | 2019-12-17 09:05 | DI.RAD_ITS ---
EXAM: XR PORTABLE CHEST AP CLINICAL HISTORY: CAD, L arm pain, fall TECHNIQUE: 2D digital imaging was performed. COMPARISON: No exams were available for comparison FINDINGS: The heart is enlarged. The patient is status post CABG and aortic valve prosthesis. The right diaph ragm is mildly elevated. There are increased densities at the right lung base which could represent infiltrate versus atelectasis. There are mild underlying fibrotic changes. Degenerative changes are seen in the shoulders. IMPRESSION: Right lower lobe atelectasis versus pneumonia.
--- NOTE | 2019-12-17 09:08 | DI.VRAD_ITS ---
PROCEDURE INFORMATION: Exam: XR Chest, 1 View Exam date and time: 12/17/2019 9:00 AM Age: 74 years old Clinical indication: Other: Cad, L arm pain, fall TECHNIQUE: Imaging protocol: XR of the chest Views: 1 view. COMPARISON: No relevant prior studies available. FINDINGS: Lungs: Patchy right basilar opacity, may be atelectasis or pneumonia. No focal consolidation on the left. Pleural space: Unremarkable. No pleural effusion. No pneumothorax. Heart/Mediastinum: Unremarkable. No cardiomegaly. Diaphragm: Elevated right hemidiaphragm. Bones/joints: Median sternotomy wires. IMPRESSION: 1. Patchy right basilar opacity, may be atelectasis or pneumonia. 2. Elevated right hemidiaphragm. Dictated and Authenticated by: Sandra Hilliard MD. Ordering:MAURO Potts MD
[2019-12-17 09:09] VITALS: BP 119/67; PULSE 79; RESP 20; TEMP 36.7; O2SAT 91
[2019-12-17 09:44] VITALS: BP 119/67; PULSE 79; RESP 20; TEMP 36.7; O2SAT 91
[2019-12-17 10:05] VITALS: BP 123/70; PULSE 83; RESP 18; TEMP 36.1; O2SAT 91
--- NOTE | 2019-12-17 10:13 | IN_ITS ---
Date of service: 12/17/19 Time of Service: 10:13 PT Notes Visit Reasons: HUMERUS FRACTURE LEFT Physical Therapy Inpatient Initial Evaluation Date: 12/17/2019 Referring Doctor: Heather Monroe NP PT Orders: PT CONSULT: Limited ability Precautions: Fall. Standard. Full PPE for presumed COVID-19 infection. NWB on the left upper extremity with sling on at all times unless otherwise advised by orthopedic surgeon. Patient Profile/Admitting Diagnosis: Patient is a 74-year-old male with past medical history significant for right below-knee amputation, history of atherosclerotic heart disease and ischemic cardiomyopathy status post CABG x 3 and AVR, and tobacco abuse who presented to the ED today via EMS due to inability to move left shoulder associated with pain and swelling of the left shoulder resulting from a mechanical fall last night causing patient to land on his left arm. X-ray of left shoulder revealed a minimally displaced fracture of the left humeral neck and left greater tuberosity with a chronic grade 3 left acromioclavicular joint separation. Patient is currently being tested for COVID-19. PMHX: Medical History Anemia due to chronic kidney disease (Acute) Aortic stenosis (Chronic) ASHD (arteriosclerotic heart disease) (Acute) BPH (benign prostatic hyperplasia) (Chronic) Cardiomyopathy, dilated (Acute) Cardiomyopathy, ischemic (Acute) Chronic kidney disease, stage 3 (Acute) COPD (chronic obstructive pulmonary disease) (Chronic) Depression (Chronic) DNR (do not resuscitate) (Acute) Hx of osteomyelitis (Acute) Hyperlipidemia (Acute) Hypertension (Chronic) Hypoalbuminemia (Acute) Left ventricular systolic dysfunction (Acute) Leg edema, left (Acute) Nonproliferative diabetic retinopathy (Acute) Old non-ST elevation myocardial infarction (NSTEMI) (Acute) Peripheral vascular disease (Chronic) Phantom limb (syndrome) (Acute) Psoriasis of scalp (Acute) Shoulder pain, left (Acute) Systemic inflammatory response syndrome, unspecified (Acute) Thrombocytopenia (Chronic) Tobacco abuse (Acute) Type 2 diabetes mellitus with polyneuropathy (Acute) Surgical History H/O heart artery stent (Chronic) History of amputation of lesser toe of right foot (Acute) Hx of aortic valve replacement (Acute) Hx of right BKA (Acute) S/P CABG x 3 (Acute) Social History/Home Situation: Patient lives with Abhishek in a single -evel private home in [place], [place] with a ramp to enter. Patient is able to ambulate from his bedroom to the outside of the house to get into his car about 60 to 70 feet using his front wheeled walker and a right below-knee prosthesis prior to admission. He also uses his wheelchair as an alternate mode of mobility inside the house. 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 Equipment Owned/DME: Right below-knee prosthesis, front wheeled walker, regular wheelchair, over the toilet commode, hand-held shower. Subjective: Patient reports significant discomfort in the left shoulder and is very much protecting that area from any kinds of movements. He states that he is getting a new hospital bed for home. He states that he has not fallen until last night for the past 12 months. He is agreeable to working with physical therapy to come up with a safe strategy for transfers and ambulation but would like to wait for his right below-knee prosthesis which is currently at home. He was able to call his regarding this who plans to bring set equipment tomorrow. Objective: General Observation: Left to UE in sling. Right below-knee residual limb intact. Left trans metatarsal amputation seen. Grade 2 pitting edema on the left leg with skin discoloration from chronic peripheral vascular disease observed. Mental Status: Alert and oriented x4 Pain: 8/10 pain on the left shoulder at rest and with movement ROM: Right Upper Extremity: Shoulder Flexion WFL. Shoulder abduction WFL. Elbow flexion WFL. Wrist flexion WFL. Opening and closing of hand WFL. Left Upper Extremity: NT due to fracture. Wrist anf fingers WFL. Right Lower Extremity: Hip flexion WFL. Hip abduction WFL. Knee flexion WFL. Left Lower Extremity: Hip flexion WFL. Hip abduction WFL. Knee flexion WFL. Ankle dorsiflexion WFL. Ankle plantarflexion WFL. Strength: Right Upper Extremity: Shoulder flexors 4/5. Shoulder abductors 4/5. Elbow flexors 4/5. Elbow extensors 4/5. Performance Improvement Analyst strong. Left Upper Extremity: NT. Performance Improvement Analyst strong. Right Lower Extremity: Hip flexors 4-/5. Hip abductors 4-/5. Knee flexors 3+/5. Knee extensors 3-/5. Left Lower Extremity: Hip flexors 4-/5. Hip abductors 4-/5. Knee flexors 4-/5. Knee extensors 3-/5. Ankle dorsiflexors 3+/5. Ankle plantarflexors 3+/5. Sensation: Intact as to pain and pressure on R residual limb. Diminished on lower half of leg on the left side down to the rest of the foot. Bed Mobility/Transfers: Rolling moderate assist to right side. Unable to move on left side due to pain on the left shoulder. Supine to sit minimal assist to BLE with patient using overhead trapeze Sit to supine minimal assist to BLE with patient using overhead trapeze Sit to stand NT due to L humeral fracture and absence of R BKA Stand to sit NT due to L humeral fracture and absence of R BKA Bed to chair NT due to L humeral fracture and absence of R BKA Chair to bed NT due to L humeral fracture and absence of R BKA Gait: NT due to L humeral fracture and absence of R BKA Balance: Static Sitting: Normal Dynamic Sitting: Normal Static Standing: NT due to L humeral fracture and absence of R BKA Dynamic Standing: NT due to L humeral fracture and absence of R BKA Special Tests: Mobility Limitations Standardized Measure [facility] AM-PAC 6 clicks Basic Mobility Inpatient Short Form: Raw Score: CMS Score: Informed Consent/Education: Patient instructed in purpose of PT consult and p stephanie of care. Assessment: Inability to put weight on left UE due to recent fracture. Functional mobility decline. Impaired mobility ADL performance due to pain and recent fracture. Patient is a 74-year-old male with past medical history significant for right below-knee amputation, history of atherosclerotic heart disease and ischemic cardiomyopathy status post CABG x 3 and AVR, and tobacco abuse who presented to the ED today via EMS due to inability to move left shoulder associated with pain and swelling of the left shoulder resulting from a mechanical fall last night causing patient to land on his left arm. X-ray of left shoulder revealed a minimally displaced fracture of the left humeral neck and left greater tuberosity with a chronic grade 3 left acromioclavicular joint separation. Patient is currently being tested for COVID-19. Will await further instructions from orthopedic surgeon regarding weight bearing instructions and exercise progression. Patient presents with clinical signs and symptoms consistent with current/admitting diagnoses that have resulted to mobility limitations, gait instability, generalized weakness, and impairment of motor control as demonstrated by the following impairment level findings: 1. Decreased strength to BUE/LE major muscle groups 2. Impaired sitting/standing balance 3. Impaired activity tolerance 4. Limitation of joint range of motion in left shoulder 5. Pain and swelling of left shoulder and forearm Impairments are contributing to the following functional limitations: 1. Dependent bed mobility skills 2. Increased dependence with transfers 3. Inability to ambulate without assistive device and physical assistance 4. Increase completion time for mobility ADL performance 5. Increased fall risk 6. Inability to negotiate steps alone safely Patient is assessed as a 50805 high complexity based on the following: History: 74-year-old male with impairment level findings, functional limitations, and medical history as listed above Examination: Demonstrable impairment in strength, balance, and range of motion with underlying impairments and functional limitations as documented above Presentation: Evolving Decision Makin moderate complexity Goals: Goals X1 week 1. Supine-Sit independent 2. Sit-Supine independent 3. Sit-Stand minimal assist with hemiwalker and right BKprosthesis 4. Stand-Sit minimal assist with hemiwalker and right BKprosthesis 5. Bed-Chair minimal assist with hemiwalker and right BKprosthesis 6. Chair-Bed minimal assist with hemiwalker and right BKprosthesis 7. Minimal assist gait on level surface with use of least restrictive device for at least 100 feet without report of pain nor dyspnea with hemiwalker and right BK prosthesis 8. Good static and dynamic standing balance/tolerance with hemiwalker and right BK prosthesis Plan of Care/Treatment Plan: 1-2x/day, 7 days/week x 1 week. Initiate Physical Therapy intervention for strengthening, bed mobility, transfers, gait, stairs, balance training, use of assistive device. DISCHARGE RECOMMENDATIONS: Patient will benefit [facility] for continued skilled physical therapy services in order to progress mobility level, strength, and balance in preparation for a safe discharge to home. TREATMENT CODE/TIME: 71619 x 30 minutes, 9753 0 x 16 minutes beginning at 10:13 AM. Thank you very much for this referral. Fern Robert PT, DPT, CLT [facility] [place] [facility], [place]
--- NOTE | 2019-12-17 10:24 | HPE_ITS ---
Date of service: 12/17/19 Time of Service: 10:25 Assessment and Plan Assessment and plan (1) Fracture of humerus, left, closed: Start date: 12/17/19 Start time: 10:44 Status: Acute Assessment and plan: 74 y.o male presents with mildly displaced left hemural fracture after attempting to transfer from to bed and falling off mattress hitting side of head and left shoulder. Appears deformed, CMST in tact. Dr. Pike consulted awaiting recommendations. Arm in sling, pain management with analgesics, tylenol, oxycodone and morphine IV. Patient uses oxycodone 5 mg at home for chronic pain. Will administer 1-2 tabs for pain. PT evaluation, CM to find placement. (2) Hypertension: Start date: 12/17/19 Start time: 10:49 Status: Chronic Assessment and plan: Normotensive at this time. Monitor while in hospital continue home meds. Qualifiers: Hypertension type: essential hypertension Qualified Code(s): I10 - Essential (primary) hypertension (3) S/P CABG x 3: Start date: 12/17/19 Start time: 10:49 Status: Acute Assessment and plan: No c/o chest pain, continue baby aspirin (4) Type 2 diabetes mellitus with polyneuropathy: Start date: 12/17/19 Start time: 10:50 Status: Acute Assessment and plan: States he no longer has diabetes, however we will check fingersticks and monitor while in the hospital (5) Peripheral vascular disease: Start date: 12/17/19 Start time: 10:51 Status: Chronic Assessment and plan: Loss of sensation to LLE, no sensation from foot to left tibia. +2 pitting Edema to LLE with slight erythema, this appears chronic in nature. No other signs of volume overload. (6) Tobacco abuse: Start date: 12/17/19 Start time: 10:52 Status: Acute Assessment and plan: States he smoke approx 1/2 a pack a day. No cravings at this time. He does not want any patch or inhaler, Continue to assess readiness to quit. Above case discussed with Dr. Darnell who is in agreement. History of Present Illness History of Present Illness Chief Complaint: Left humerus fracture Narrative: 74 y.o pleasant male with PMH of DM, states he does not currently have, HTN, s/p CABG x 3 vessel ,Tobacco abuse, RBKA, left total toe amputation presents to [facility] ED after falling when attempting to get in bed from Wheel chair. Jakub states usually he pushes his mattress back against the wall after getting up however last night he did not. He attempted to get back into bed falling of the edge of the mattress and landing on his left shoulder. Imaging in the ED revealing mildly displaced fracture of the left humerus and greater tuberosity. Dr. Pike contacted by ED provider, no recommendations at this time. Jakub does state he hit his head. No head imaging in the ED will order CT. Labs in the with elevated alk phos at 158 and anemia that appears to be chronic, slightly elevated BUN which also appears chronic. He has been asked to be admitted by hospitalist service for further management. He will be admitted to m/s. PT to evaluate patient, analgesics for pain. He denies CP, SOB, N/V/D. Review of Systems All systems reviewed & are unremarkable except as noted in HPI and below [facility] Medical History Anemia due to chronic kidney disease (Acute) Aortic stenosis (Chronic) ASHD (arteriosclerotic heart disease) (Acute) BPH (benign prostatic hyperplasia) (Chronic) Cardiomyopathy, dilated (Acute) Cardiomyopathy, ischemic (Acute) Chronic kidney disease, stage 3 (Acute) COPD (chronic obstructive pulmonary disease) (Chronic) Depression (Chronic) DNR (do not resuscitate) (Acute) Hx of osteomyelitis (Acute) Hyperlipidemia (Acute) Hypertension (Chronic) Hypoalbuminemia (Acute) Left ventricular systolic dysfunction (Acute) Leg edema, left (Acute) Nonproliferative diabetic retinopathy (Acute) Old non-ST elevation myocardial infarction (NSTEMI) (Acute) Peripheral vascular disease (Chronic) Phantom limb (syndrome) (Acute) Psoriasis of scalp (Acute) Shoulder pain, left (Acute) Systemic inflammatory response syndrome, unspecified (Acute) Thrombocytopenia (Chronic) Tobacco abuse (Acute) Type 2 diabetes mellitus with polyneuropathy (Acute) Surgical History H/O heart artery stent (Chronic) History of amputation of lesser toe of right foot (Acute) Hx of aortic valve replacement (Acute) Hx of right BKA (Acute) S/P CABG x 3 (Acute) Family History Mother Heart disease Social History Smoking/Tobacco Use Status: Current every day Tobacco Type: cigarettes Years smoked: 63 Counseling given: patient declined Alcohol Intake: current Alcohol Intake frequency: a few times a week Alcohol type: wine Drug use: Never Substance use type: does not use Additional Social history: lives Meds Home Medications and Allergies Home Medications Medication Instructions Recorded Confirmed Type aspirin 81 mg chewable tablet 81 mg PO HS 05/23/18 12/17/19 History oxycodone 5 mg tablet 5 mg PO Q4H PRN tab 12/21/18 12/17/19 History ascorbic acid (vitamin C) 500 mg 500 mg PO DAILY 03/22/19 12/17/19 History tablet polyethylene glycol 3350 17 17 gm PO DAILY 03/22/19 12/17/19 History gram/dose oral powder losartan 25 mg tablet 25 mg PO DAILY #30 tab 04/05/19 12/17/19 Rx carvedilol 25 mg tablet 25 mg PO Q12H #180 tab 05/19/19 12/17/19 Rx nitroglycerin 0.4 mg sublingual 0.4 mg SL ONCE PRN #14 tab 05/19/19 12/17/19 Rx tablet rosuvastatin 20 mg PO DAILY 12/17/19 12/17/19 History Allergies Allergy/AdvReac Type Severity Reaction Status Date / Time Sulfa (Sulfonamide Allergy Severe ANAPHYLAXIS Verified 12/17/19 07:23 Antibiotics) cephalexin Allergy Mild per Unverified 12/17/19 08:04 Pcp chart vancomycin Allergy Critical Unverified 12/17/19 08:04 by PCP chart Exam Const General: cooperative, no acute distress, not in acute distress and ill appearing chronically Nutritional Appearance: average body habitus Orientation: alert, awake and oriented x3 HENMT Head: normal to inspection Ears: hearing grossly normal bilaterally Face and sinus: normal facial exam Eyes Cornea: corneas normal Pupils: PERRL EOM: EOM intact bilaterally Neck Neck: normal visual inspection and no JVD Carotids: normal carotid upstroke Chest Chest: normal inspection of the chest Resp Effort & Inspection: normal respiratory effort, able to speak in complete sentences and cough Auscultation: clear to auscultation bilaterally Cardio Jugular venous pressure: no JVD Rate: regular rate Rhythm: regular rhythm Heart Sounds: S1 normal and S2 normal GI Inspection: normal to inspection Palpation: soft and no hepatosplenomegaly Auscultation: normal bowel sounds General: No CVA tenderness Back/Spine/Pelvis Back: no CVA tenderness Skin General skin exam: scars (to sternum, left foot and right knee, healing) Neuro General: patient alert, patient awake and patient oriented x3 Cognition: normal cognition Speech: speech normal Extrem General: normal to inspection, full ROM and pedal edema present (+2 pitting edema to LLE with slight erythema, appears chronic in nature.) Left upper extremity: shoulder/upper arm Details: abnormal to inspection, tenderness, swelling, abnormal ROM and deformity Location: of the proximal humerus; abnormal to inspection and ROM limited Right lower extremity: abnormal to inspection (BKA, ) Left lower extremity: edema (loss of sensation from foot to mid tibia.) Details: pitting and 2+; abnormal to inspection Psych Appearance: grossly normal Speech and Movement: speech and movement normal Affect: normal affect Attitude: cooperative Results Labs Result diagrams: 12/17/19 08:40 12/17/19 08:40 Labs: Laboratory Results - last 24 hr 12/17/19 12/17/19 08:40 08:40 WBC 5.85 RBC 3.69 L Hgb 12.1 L Hct 36.1 L MCV 97.8 H MCH 32.8 MCHC 33.5 RDW 13.6 Plt Count 102 L MPV 9.5 Immature Gran % 0.2 Neutrophils % 81.3 Lymphocytes % 8.7 Monocytes % 8.7 Eosinophils % 0.9 Basophils % 0.2 Absolute Neutrophils 4.76 Absolute Lymphocytes 0.51 L Absolute Monocytes 0.51 Absolute Eosinophils 0.05 Absolute Basophils 0.01 Sodium 139 Potassium 4.4 Chloride 107 Carbon Dioxide 23.5 Anion Gap 8.5 BUN 28 H Creatinine 1.21 Estimated GFR/1.73 m2 58.46 Glucose 138 H Calcium 8.2 L Total Bilirubin 0.8 AST 25 ALT 33 Alkaline Phosphatase 158 H Total Protein 7.2 Albumin 3.2 L Last Vital Signs Temp 36.7 C 12/17/19 09:44 Pulse 79 12/17/19 09:44 Resp 20 05/03/20 09:44 BP 119/67 12/17/19 09:44 Pulse Ox 91 L 12/17/19 09:44 COVID-19 Screening Traveled to [place] from one of the affected countries or regions?: NO Recent travel in the [place] within the last 14 days?: No Recent out of the country travel within the last 14 days?: No Exposure or possible exposure to illness during travel?: No Had IN PERSON contact w/suspected or confirmed C-19 person: No Have you had the following symptoms in the past few days?: No
[2019-12-17] MEDS: Carvedilol 12.5 MG TAB 25 MG PO ×2 (11:05→21:55)
[2019-12-17] MEDS: Losartan 25 MG TAB PO (11:06)
[2019-12-17] MEDS: Heparin 5,000 UNITS/ML VIAL 5000 UNITS SC ×2 (11:06→17:13)
[2019-12-17] MEDS: Polyethylene Glycol 3350 17 GM PACKET PO (11:06)
[2019-12-17] MEDS: Ascorbic Acid 500 MG TAB PO (11:06)
--- NOTE | 2019-12-17 14:15 | DI.CT_ITS ---
EXAM: CT HEAD WO CLINICAL HISTORY: trauma, hit head from fall TECHNIQUE: 2D digital imaging was performed. COMPARISON: No exams were available for comparison FINDINGS: No intracranial hemorrhage or skull fracture is seen. There is mild atrophy and mild white matter c hanges of small vessel disease. The ventricles are normal in size. The sinuses and mastoid air cell s as well as orbits are unremarkable. IMPRESSION: No acute abnormality. RADIATION DOSE DELIVERED: Total DLP
--- NOTE | 2019-12-17 14:19 | INITIAL_ITS ---
- If Service Date Differs Date of service: 12/17/19 Time of Service: 14:19 Care Management Initial Assess REASON FOR HOSPITALIZATION:: fracture left humerus PAST MEDICAL HISTORY/PAST SURGICAL HISTORY:: Medical History . Anemia due to chronic kidney disease (Acute). Aortic stenosis (Chronic). ASHD (arteriosclerotic heart disease) (Acute). BPH (benign prostatic hyperplasia) (Chronic). Cardiomyopathy, dilated (Acute). Cardiomyopathy, ischemic (Acute). Chronic kidney disease, stage 3 (Acute). COPD (chronic obstructive pulmonary disease) (Chronic). Depression (Chronic). DNR (do not resuscitate) (Acute). Hx of osteomyelitis (Acute). Hyperlipidemia (Acute). Hypertension (Chronic). Hypoalbuminemia (Acute). Left ventricular systolic dysfunction (Acute). Leg edema, left (Acute). Nonproliferative diabetic retinopathy (Acute). Old non-ST elevation myocardial infarction (NSTEMI) (Acute). Peripheral vascular disease (Chronic). Phantom limb (syndrome) (Acute). Psoriasis of scalp (Acute). Shoulder pain, left (Acute). Systemic inflammatory response syndrome, unspecified (Acute). Thrombocytopenia (Chronic). Tobacco abuse (Acute). Type 2 diabetes mellitus with polyneuropathy (Acute). Surgical History . H/O heart artery stent (Chronic). History of amputation of lesser toe of right foot (Acute). Hx of aortic valve replacement (Acute). Hx of right BKA (Acute). S/P CABG x 3 (Acute) PREVIOUS FUNCTIONAL STATUS/SOCIAL/FAMILY SUPPORTS:: Jakub lives in [place], [place] with his Abhishek. 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 Jakub and Abhishek have a son and a daughter, both of whom live out of state. Jakub is wheelchair bound, having had a right BKA and t ransmetatarsal amputation on the left. He is fairly independent with ADLs and has been able to transfer in and out of his wheelchair with the aide of a walker. He currently receives no community services. CURRENT FUNCTIONAL STATUS:: Jakub was sitting up in bed when met with him. He talked about his life in [place] where had lived and about the work he did. He also talked about his children. His son he described as a bum because he has substance abuse issues and has stolen medication from Jakub in the past. He seems very proud of his daughter who has a business of her own.CM raised the issue of a rehab stay since it will be difficult, if not impossible, for Jakub to transfer in and out of his wheelchair for toileting and getting in and out of bed with the use of only one arm. He has requested that a referral be sent to [facility]. ADVANCE DIRECTIVES:: Discussed but not completed Has patient been provided with information about the portal?: Yes Did the patient sign up for the portal?: No (no computer) CODE STATUS:: DNR/DNI INSURANCE COVERAGE / FINANCIAL ISSUES:: Medicare. Medicaid CURRENT HOME/COMMUNITY SERVICES/EQUIPMENT:: Jakub uses a walker and a wheelchair but receives no community services at this time. PRIMARY CARE PHYSICIAN:: Ashley Spain POTENTIAL DISCHARGE NEEDS:: Jakub will need short term rehab until his humerus fracture heals PATIENT/FAMILY EDUCATION NEEDS:: Discharge plan, limitations, follow up plan, Ask Me Three. TRANSPORTATION:: to be determined based on disposition PLAN:: Jakub will likely need short term rehab until his arm heals and he can again transfer independently. At his request, a referral has been sent to [facility]. CM will continue to support patient, family and discharge planning needs.
--- NOTE | 2019-12-17 14:29 | DI.VRAD_ITS ---
PROCEDURE INFORMATION: Exam: CT Head Without Contrast Exam date and time: 12/17/2019 10:40 AM Age: 74 years old Clinical indication: Other: Trauma, hit head from fall TECHNIQUE: Imaging protocol: Computed tomography of the head without contrast. Radiation optimization: All CT scans at this facility use at least one of these dose optimization techniques: automated exposure control; mA and/or kV adjustment per patient size (includes targeted exams where dose is matched to clinical indication); or iterative reconstruction. COMPARISON: No relevant prior studies available. FINDINGS: Brain: Central and cortical brain atrophy evident, appropriate for patient age. There is nonspecific periventricular low attenuation, likely microangiopathic disease. No acute intracranial hemorrhage. Ventricles: Normal. No ventriculomegaly. Bones/joints: Unremarkable. No acute fracture. Sinuses: Visualized sinuses are unremarkable. No fluid levels. Mastoid air cells: Visualized mastoid air cells are well aerated. Soft tissues: Unremarkable. IMPRESSION: No acute intracranial abnormality. Dictated and Authenticated by: Sandra Hilliard MD. Ordering:ASHLEY Romero MD
--- NOTE | 2019-12-17 16:12 | PT.INNT ---
Date of service: 12/17/19 Time of Service: 04:12 PT Notes Visit Reasons: HUMERUS FRACTURE LEFT Patient was not available earlier this afternoon as he needed to be brought down for CT testing. Later in the afternoon, patient requested to wait for his R BK prosthesis before proceeding with any mobility assessment. His will bring his prosthesis tomorrow morning. His COVID19 testing result is pending at this time. Will plan on seeing patient tomorrow morning as scheduled.
[2019-12-17 16:48] VITALS: BP 117/73; PULSE 71; RESP 16; TEMP 36.5; O2SAT 93
[2019-12-17] MEDS: Normal Saline Flush 10 ML SYR IVP (17:14)
[2019-12-17 20:27] LABS: COVID-19 RT-PCR UVMMC Result Negative (Negative)
[2019-12-17 21:31] VITALS: BP 114/73; PULSE 71; RESP 18; TEMP 35.6; O2SAT 92
[2019-12-17] MEDS: Aspirin 81 MG CHEW PO (21:55)
[2019-12-18] VITALS (15 sets, daily range): BP systolic 101–120; BP diastolic 56–75; PULSE 62–70; RESP 2–24; TEMP 36.4–37.5; O2SAT 89–98
[2019-12-18] MEDS: Heparin 5,000 UNITS/ML VIAL 5000 UNITS SC (01:01)
[2019-12-18] MEDS: Normal Saline Flush 10 ML SYR IVP ×2 (05:52→16:11)
[2019-12-18 06:57] LABS: Anion Gap 9.5 mmol/L (3-11); BUN 36 mg/dL (7-18); CO2 22.5 mmol/L (21.0-32.0); CREATININE 1.71 mg/dL (0.70-1.30); Calcium 8.4 mg/dL (8.5-10.1); Chloride 107 mmol/L (98-107); Estimated GFR 39.22 (mL/min/1.73m2); Glucose 98 mg/dL (74-106); Magnesium 1.7 mg/dL (1.8-2.4); Potassium 4.7 mmol/L (3.5-5.1); Sodium 139 mmol/L (136-145)
[2019-12-18 07:14] LABS: Abs Immature Grans 0.01 k/cumm (0.0-0.09); Absolute Basophil Count 0.01 k/cumm (0.0-0.2); Absolute Eosinophil Count 0.09 k/cumm (0.0-0.7); Absolute Lymphocyte Count 0.75 k/cumm (1.2-3.4); Absolute Monocyte Count 0.41 k/cumm (0.11-0.7); Absolute Neutrophil Count 2.27 k/cumm (1.2-6.7); Basophils % 0.3; Eosinophils % 2.5; HCT 34.7 % (40.0-50.0); HGB 11.2 g/dL (13.5-17.5); Immature Grans % 0.3 %; Lymphocytes % 21.2; Mean Corp. HGB Concentration 32.3 g/dL (32.0-36.0); Mean Corpuscular Hemoglobin 32.3 pg (27.0-33.0); Mean Platelet Volume 10.5 fL (8.0-11.0); Monocytes % 11.6; Neutrophils % 64.1; RBC 3.47 m/cumm (4.50-6.00); RBC Distribution Width 13.9 % (11.8-14.1); White Blood Cell Count 3.54 k/cumm (4.4-10.8)
[2019-12-18 07:38] LABS: Diff Comment Diff Reviewed; Polychromasia Present
[2019-12-18 07:39] LABS: Platelet Count 81 x1000/uL (130-400)
[2019-12-18] MEDS: Losartan 25 MG TAB PO (07:49)
[2019-12-18] MEDS: Acetaminophen 325 MG TAB PO (07:49)
[2019-12-18] MEDS: Rosuvastatin 10 MG TAB 20 MG PO (07:49)
[2019-12-18] MEDS: Ascorbic Acid 500 MG TAB PO (07:50)
[2019-12-18] MEDS: Polyethylene Glycol 3350 17 GM PACKET PO (07:52)
--- NOTE | 2019-12-18 08:46 | W.ORTHOCONSU ---
Date of service: 12/18/19 Time of Service: 07:47 History of Present Illness History of Present Illness Chief Complaint: Left shoulder pain Narrative: Jakub is a 74-year-old with multiple medical comorbidities as well as chronic pain who fell while transferring at his home 2 days ago. He primarily relies on a wheelchair for all of his transfers given an amputation of the right leg and a partial rotation of the left foot. He caught the edge of his bed mattress and fell down onto the left arm. He had an abrasion of the left elbow and pain of the left shoulder. He tried to manage at home. However, due to the pain, he is unable to. He was brought into the emergency department and diagnosed with a left proximal humerus fracture. He currently reports pain about the left shoulder girdle. He has pain with any motion. He is unable to move the shoulder. He is able to move his hand and wrist. He finds moving the elbow also causes pain. He denies any new numbness or tingling. Consult Reason Left proximal humerus fracture Assessment and Plan Assessment and plan (1) Fracture of humerus, left, closed: Status: Acute Assessment and plan: Jakub is a 74-year-old with multiple medical comorbidities and limited mobility who suffered a left proximal humerus fracture after a fall. He does have significant pain about the left shoulder but is on baseline pain medications which could be making his pain control much more difficult. I recommend a Cryo/Cuff for the left arm. He should continue to use the sling or a cuff and collar for relative immobilization of the left shoulder. I also encouraged a pillow or blankets behind the elbow to prevent extension through the fracture. Given the pain he currently has and the increased use of oxycodone, a regional nerve block may be considered to help provide some pain relief for at least 3 to 4 days. This will need to be discussed with anesthesia. There is no surgical indication. He should limit mobilization with the left arm which may make his transfers much more difficult. We will repeat an x-ray in another week to make sure that there is been no change in the positioning of the fracture. It is very unlikely he will need anything invasive to be done. Qualifiers: Encounter type: initial encounter Humerus Location: surgical neck Fracture morphology: unspecified fracture morphology Fracture alignment: nondisplaced Qualified Code(s): S42.215A - Unspecified nondisplaced fracture of surgical neck of left humerus, initial encounter for closed fracture Review of Systems All systems reviewed & are unremarkable except as noted in HPI and below PFSH Medical History Anemia due to chronic kidney disease (Acute) Aortic stenosis (Chronic) ASHD (arteriosclerotic heart disease) (Acute) BPH (benign prostatic hyperplasia) (Chronic) Cardiomyopathy, dilated (Acute) Cardiomyopathy, ischemic (Acute) Chronic kidney disease, stage 3 (Acute) COPD (chronic obstructive pulmonary disease) (Chronic) Depression (Chronic) DNR (do not resuscitate) (Acute) Hx of osteomyelitis (Acute) Hyperlipidemia (Acute) Hypertension (Chronic) Hypoalbuminemia (Acute) Left ventricular systolic dysfunction (Acute) Leg edema, left (Acute) Nonproliferative diabetic retinopathy (Acute) Old non-ST elevation myocardial infarction (NSTEMI) (Acute) Peripheral vascular disease (Chronic) Phantom limb (syndrome) (Acute) Psoriasis of scalp (Acute) Shoulder pain, left (Acute) Systemic inflammatory response syndrome, unspecified (Acute) Thrombocytopenia (Chronic) Tobacco abuse (Acute) Type 2 diabetes mellitus with polyneuropathy (Acute) Surgical History H/O heart artery stent (Chronic) History of amputation of lesser toe of right foot (Acute) Hx of aortic valve replacement (Acute) Hx of right BKA (Acute) S/P CABG x 3 (Acute) Family History Mother Heart disease Social History Smoking/Tobacco Use Status: Current every day Tobacco Type: cigarettes Years smoked: 63 Counseling given: patient declined Alcohol Intake: current Alcohol Intake frequency: a few times a week Alcohol type: wine Drug use: Never Substance use type: does not use Additional Social history: lives Exam Const General: cooperative, uncomfortable, well developed and well groomed Nutritional Appearance: average body habitus Orientation: alert, awake and oriented x3 HENMT Head: normal to inspection, normocephalic and atraumatic Extrem Other: Evaluation the left shoulder shows a prominent distal clavicle. There may be some faint ecchymosis seen about the proximal left arm. No skin defects, abrasions, or lacerations. There is extreme tenderness to palpation throughout the entirety of the upper arm and shoulder girdle. No significant pain over the clavicle. No pain medial to the scapula. Range of motion was not tested as this causes pain. No pain along the elbow although there is an abrasion laterally. There is some notable muscular wasting within the hand itself. However, the patient does have full range of motion of the wrist and the fingers with intact EPL, FPL, interossei function. Sensation intact light touch of the axillary, median, radial, ulnar nerve. Palpable radial pulse. Psych Mental Status: mental status grossly normal Mood: congruent mood Affect: normal affect Results Last Vital Signs Temp 37.0 C 12/18/19 07:28 Pulse 70 12/18/19 07:28 Resp 18 12/18/19 07:28 BP 104/62 12/18/19 07:28 Pulse Ox 93 L 12/18/19 07:28 Labs Result diagrams: 12/18/19 06:26 12/18/19 06:26 Labs: Laboratory Results - last 24 hr 12/17/19 12/17/19 12/17/19 08:40 08:40 08:50 WBC 5.85 RBC 3.69 L Hgb 12.1 L Hct 36.1 L MCV 97.8 H MCH 32.8 MCHC 33.5 RDW 13.6 Plt Count 102 L MPV 9.5 Immature Gran % 0.2 Neutrophils % 81.3 Lymphocytes % 8.7 Monocytes % 8.7 Eosinophils % 0.9 Basophils % 0.2 Absolute Neutrophils 4.76 Absolute Lymphocytes 0.51 L Absolute Monocytes 0.51 Absolute Eosinophils 0.05 Absolute Basophils 0.01 Differential Comment RBC Morphology Polychromasia Sodium 139 Potassium 4.4 Chloride 107 Carbon Dioxide 23.5 Anion Gap 8.5 BUN 28 H Creatinine 1.21 Estimated GFR/1.73 m2 58.46 Glucose 138 H Calcium 8.2 L Magnesium Total Bilirubin 0.8 AST 25 ALT 33 Alkaline Phosphatase 158 H Total Protein 7.2 Albumin 3.2 L COVID-19 PCR Negative Nasopharyn COVID-19 PCR Not Applicable Ref Test Perform Site [facility] hospital lab 12/18/19 12/18/19 06:26 06:26 WBC 3.54 L D RBC 3.47 L Hgb 11.2 L Hct 34.7 L MCV 100.0 H MCH 32.3 MCHC 32.3 RDW 13.9 Plt Count 81 L MPV 10.5 Immature Gran % 0.3 Neutrophils % 64.1 Lymphocytes % 21.2 Monocytes % 11.6 Eosinophils % 2.5 Basophils % 0.3 Absolute Neutrophils 2.27 Absolute Lymphocytes 0.75 L Absolute Monocytes 0.41 Absolute Eosinophils 0.09 Absolute Basophils 0.01 Differential Comment Diff reviewed RBC Morphology See below Polychromasia Present Sodium 139 Potassium 4.7 Chloride 107 Carbon Dioxide 22.5 Anion Gap 9.5 BUN 36 H Creatinine 1.71 H Estimated GFR/1.73 m2 39.22 Glucose 98 Calcium 8.4 L Magnesium 1.7 L Total Bilirubin AST ALT Alkaline Phosphatase Total Protein Albumin COVID-19 PCR Nasopharyn COVID-19 PCR Ref Test Perform Site Imaging Imaging Studies: X-ray of the left shoulder demonstrates a slightly comminuted proximal humerus fracture. Fortunately, there is no significant displacement. There is involvement of the greater tuberosity and the surgical neck, but again, without significant displacement. No extension into the joint. No extension down the humerus. Elbow x-rays show no elbow fracture.
[2019-12-18] MEDS: MAGNESIUM SULFATE 2 GM/50 ML BAG IVPB (08:57)
[2019-12-18] MEDS: Normal Saline 1,000 ML 75 ML IV (08:58)
--- NOTE | 2019-12-18 09:18 | OT.INIE ---
Occupational Therapy Notes Inpatient Occupational Therapy Evaluation Date: 12/18/19 Referring Doctor: Heather Monroe NP OT Orders: Non-Urgent Precautions: Fall, DNR/DNI PATIENT PROFILE/ADMITTING DIAGNOSIS: Pt is a 74 year old male who presented to the ER on 12/17/19 for a fx of his (L) humerus. Pt recently underwent a (R) leg below the knee amputation and (L) leg partial foot amputation. He uses a wheelchair and transfers with a prosthetic on his (R) leg with use of his upper body. He fell while transferring into bed. He is unable to transfer into his bed at this time due to (L) humerus fx. Pt was admitted to the Med Surg floor with the following dx, fx (L) humerus fx, HTN, s/p CABG x3, DM II, peripheral vascular disease. Past Medical History- Medical History Anemia due to chronic kidney disease (Acute) Aortic stenosis (Chronic) ASHD (arteriosclerotic heart disease) (Acute) BPH (benign prostatic hyperplasia) (Chronic) Cardiomyopathy, dilated (Acute) Cardiomyopathy, ischemic (Acute) Chronic kidney disease, stage 3 (Acute) COPD (chronic obstructive pulmonary disease) (Chronic) Depression (Chronic) DNR (do not resuscitate) (Acute) Hx of osteomyelitis (Acute) Hyperlipidemia (Acute) Hypertension (Chronic) Hypoalbuminemia (Acute) Left ventricular systolic dysfunction (Acute) Leg edema, left (Acute) Nonproliferative diabetic retinopathy (Acute) Old non-ST elevation myocardial infarction (NSTEMI) (Acute) Peripheral vascular disease (Chronic) Phantom limb (syndrome) (Acute) Psoriasis of scalp (Acute) Shoulder pain, left (Acute) Systemic inflammatory response syndrome, unspecified (Acute) Thrombocytopenia (Chronic) Tobacco abuse (Acute) Type 2 diabetes mellitus with polyneuropathy (Acute) Surgical History H/O heart artery stent (Chronic) History of amputation of lesser toe of right foot (Acute) Hx of aortic valve replacement (Acute) Hx of right BKA (Acute) S/P CABG x 3 (Acute) Social History/Home Situation: [] Equipment owned/DME: Wheelchair SUBJECTIVE: [] OBJECTIVE: [] General Observation: [] Mental Status: [] Pain: [] ROM: [] RUE [] L UE [] STRENGTH: RUE [] LUE [] SENSATION: [] FUNCTIONAL MOBILITY/ADLS: [] Transfers [] Supine-sit [] Sit-supine [] Sit-Stand [] Stand-sit [] Bed-Chair [] Chair-bed [] BATHING [] Bathing UE [] Bathing LE [] DRESSING [] Dressing UE [] Dressing LE [] GROOMING [] TOILETING [] EATING [] BALANCE: Static sitting [] Dynamic Sitting [] Static Standing [] Dynamic Standing [] SPECIAL TESTS: Daily Activity Limitations Standardized Measure [] [facility] AM -PAC ?6 clicks? Daily Activity Inpatient Short Form: Raw score: [] Standardized score: [] CMS score: [] INFORMED CONSENT/EDUCATION: Pt instructed in purpose of OT Consult and plan of care. ASSESSMENT: Patient is a 74-year-old male referred to occupational therapy services with diagnosis of fx (L) humerus fx, HTN, s/p CABG x3, DM II, peripheral vascular disease. Patient presents with clinical signs and symptoms consistent with [], as demonstrated by the following impairment level findings: [] Impairments are contributing to the following functional limitations: [] AMPAC score [] Patient is assessed as a Low 75880 [] Moderate 54724 [] high 02308 [] complexity based on the following: [] History: [] Examination: [] Presentation: [] Decision Making: [] GOALS Goals x1 week 1. Transfers 2. Dressing 3. Bathing 4. Toileting 5. Eating PLAN OF CARE/TREATMENT PLAN: 1x/day, 5 days/ week x 1week Initiate Occupational Therapy Services for bathing, dressing, grooming, toileting, eating, transfer training to increase patient's functional (I) and improve patient's quality of life. DISCHARGE RECOMMENDATIONS [] TREATMENT TIME/MINUTES/CODES [] Taylor Cespedes OTR/[facility]
[2019-12-18] MEDS: Carvedilol 12.5 MG TAB 25 MG PO ×2 (10:00→22:09)
--- NOTE | 2019-12-18 10:05 | DI.RAD_ITS ---
EXAM: XR PORTABLE CHEST AP CLINICAL HISTORY: hypoxia TECHNIQUE: 2D digital imaging was performed. COMPARISON: No exams were available for comparison FINDINGS: The heart is enlarged, unchanged. Sternal wires and aortic valve prosthesis are again noted. There is artifact on the right lateral aspect of the chest. The lungs are not as well inflated on the curr ent exam. A right basilar infiltrate is again noted. IMPRESSION: Right lower lobe atelectasis versus pneumonia.
[2019-12-18] MEDS: Bupivacaine LIPOSOME/PF 133 MG/10 ML VIAL IJ (10:53)
[2019-12-18] MEDS: Bupivacaine 0.5% Pres-Free 30 ML VIAL (10:53)
--- NOTE | 2019-12-18 11:14 | NT_ITS ---
Date of service: 12/18/19 Time of Service: 11:14 Occupational Therapy Notes 12/18/19 OT consult received and pt's chart was reviewed. OT attempted to see pt x2, per nursing pt is getting a nerve block and is not available. OT will attempt OT consult tomorrow morning. Taylor Cespedes OTR/[facility]
--- NOTE | 2019-12-18 11:30 | PHA.REVIEW ---
Pharmacy Admission Review - Admission Clinical Review (Last Reviewed 12/18/19 @ 09:31 by Tim Pike MD) Fracture of humerus, left, closed (Acute) S/P CABG x 3 (Acute) Type 2 diabetes mellitus with polyneuropathy (Acute) Tobacco abuse (Acute) Sulfa (Sulfonamide Antibiotics) Allergy (Severe, Verified 12/17/19 07:23) ANAPHYLAXIS cephalexin Allergy (Unverified 12/17/19 08:04) Mild per Pcp chart vancomycin Allergy (Unverified 12/17/19 08:04) Critical by PCP chart Height 6 ft Weight 87.8 kg - Renal Dosing Renal Dosing: BUN 36 mg/dL (7-18) H 12/18/19 06:26 Creatinine 1.71 mg/dL (0.70-1.30) H 12/18/19 06:26 Medications needing adjustments: Reviewed (Crcl ~40 mL/min current meds okay) - Anticoagulation Anticoagulation: Hgb 11.2 g/dL (13.5-17.5) L 12/18/19 06:26 Hct 34.7 % (40.0-50.0) L 12/18/19 06:26 Plt Count 81 x1000/uL (130-400) L 12/18/19 06:26 Creatinine 1.71 mg/dL (0.70-1.30) H 12/18/19 06:26 DVT Prohphylaxis: Reviewed Medications: Heparin Therapeutic Anticoagulation: N/A - Opiate Usage Evaluate Pain Scale/Pains Meds: Reviewed Scheduled Bowel Reg ordered if on Opiates?: Yes - Relevant Labs Sodium 139 mmol/L (136-145) 12/18/19 06:26 Potassium 4.7 mmol/L (3.5-5.1) 12/18/19 06:26 Chloride 107 mmol/L (98-107) 12/18/19 06:26 Magnesium 1.7 mg/dL (1.8-2.4) L 12/18/19 06:26 Electrolytes, C-Reactive P, ESR: Reviewed (mag replacement given this morning.) - DM Control DM Control: Glucose 98 mg/dL (74-106) 12/18/19 06:26 Finger Stick Blood Glucose 98 Finger Stick Blood Glucose 98 Insulin Dosing: Reviewed (has sliding scale aspart ordered, but BG has not been high enough to require any doses so far.) - Heart Failure/NH EF%, TOÑO's, B-Blockers, Diuretics: Reviewed (carvedilol, losartan,) - BP Control BP Control: Blood Pressure 104/62 Blood Pressure 106/67 If elevated: N/A - Qtc Review If Elevated: Reviewed (QTc 479) - IV to PO Switch IV Medications: N/A - Home Meds Home Med List reviewed: Reviewed Relevent Home Meds Not ordered & why?: nitroglycerin (PRN) - Current meds Current Medication Order Review: Intervened (changed morphine to 2 mL syringe so nurses dont have to waste med with every dose.) - Comments Comments/Follow Ups: Watch platelets and mag levels. Pt is getting nerve block to help with pain per morning report.
--- NOTE | 2019-12-18 13:29 | PGE_ITS ---
Date of Service Date of service: 12/18/19 Time of Service: 13:29 Assessment and Plan Assessment and plan (1) Fracture of humerus, left, closed: Start date: 12/18/19 Start time: 13:41 Status: Acute Assessment and plan: Pain was not controlled overnight despite po oxycodone and morphine. Block done this morning by anesthesia.At this time he states experiencing numbness from shoulder to hand. His is to bring in prosthetic leg to help with mobility. Consider fentanyl patch if patient starts to experience severe pain, he is a chronic pain patient. Which could be why he is harder to control Continue PT/OT, Qualifiers: Encounter type: initial encounter Humerus Location: surgical neck Fracture morphology: unspecified fracture morphology Fracture alignment: nondisplaced Qualified Code(s): S42.215A - Unspecified nondisplaced fracture of surgical neck of left humerus, initial encounter for closed fracture (2) COPD (chronic obstructive pulmonary disease): Start date: 12/18/19 Start time: 13:48 Status: Chronic Assessment and plan: Patient has history of COPD, he is not on any maintanence medication. Staff concerned patient breathing and oxygen level this am. CXR obtained revealing for Atelectasis vs pneumonia. I am less likely to suspect pneumonia given clinical picture, afebrile, lack of cough and sputum production, white count is actually low; this makes pneumonia less likely. He could be developing a bronchitis in setting of not smoking and not taking deep breaths. ICS given and encouraged, acapella to help if any secretions could be brought up. I will hold off on antibiotics at this time. Albuterol as needed, symbicort. If patient starts to have sputum production especially discolored I would consider an antibiotic at that time. He does not appear to breath deeply, encourage ICS. Lungs with Rhonchi to upper bilateral airways right worse than left and diminished bilaterally in bases. (3) Hypertension: Start date: 12/18/19 Start time: 13:47 Status: Chronic Assessment and plan: Normotensive at this time. Monitor while in hospital continue home meds. Qualifiers: Hypertension type: essential hypertension Qualified Code(s): I10 - Essential (primary) hypertension (4) S/P CABG x 3: Start date: 12/18/19 Start time: 13:47 Status: Acute Assessment and plan: No c/o chest pain, continue baby aspirin (5) Type 2 diabetes mellitus with polyneuropathy: Start date: 12/18/19 Start time: 13:55 Status: Acute Assessment and plan: States he no longer has diabetes, however we will check fingersticks and monitor while in the hospital, BGL have been 90's to low 100's (6) Peripheral vascular disease: Start date: 12/18/19 Start time: 13:56 Status: Chronic Assessment and plan: Loss of sensation to LLE, no sensation from foot to left tibia. +1 pitting Edema to LLE with slight erythema, this appears chronic in nature. No other signs of volume overload. (7) REESE (acute kidney injury): Start date: 12/18/19 Start time: 13:58 Status: Acute Assessment and plan: Elevated Creatinine today up from 1.21 to 1.71. He does not have any nephrotoxic medications. Will infuse IVF at 75 an hour. Recheck BMP in am. (8) Tobacco abuse: Start date: 12/18/19 Start time: 13:57 Status: Acute Assessment and plan: States he smoke approx 1/2 a pack a day. No cravings at this time. He does not want any patch or inhaler, Continue to assess readiness to quit. Above case discussed with Dr. Darnell who is in agreement. Subjective Subjective Patient reports: other Interval history since last seen: Jakub is feeling tired today. He did not sleep well. He was experiencing a lot of pain overnight d/t fracture. He received a block this morning by anesthesia to help with the pain. He wants to sleep as I evaluate him, he states his hand is numb and feels he can finally rest. He denies SOB, N/V/D and CP. He states last BM 5 days ago, normally he goes every day will put him on bowel regimen. Exam Narrative Exam Narrative: Const: Sitting up in bed, feeling grumpy from lack of sleep. He is moving left arm around with right arm positioning for comfort Chest: normal atraumatic Resp: Diminished in bilateral lower lobes. Rhonchi in upper airway more pronounced on left anterior and posterior than right. Cardio: RRR no murmur, or gallop GI: abd soft nontender bsx 4 : voiding in urinal without difficulty Extremity: LUE in sling, numb at this time from shoulder to elbow due to block. LLE missing toes from previous amputation, RLE with BKA. Slight edema to LLE, shiny appears chronic. Objective Objective Clinical Data: Abnormal lab results 12/18/19 12/18/19 Range/Units 06:26 06:26 WBC 3.54 L D (4.4-10.8) k/cumm RBC 3.47 L (4.50-6.00) m/cumm Hgb 11.2 L (13.5-17.5) g/dL Hct 34.7 L (40.0-50.0) % MCV 100.0 H (80-95) fL Plt Count 81 L (130-400) x1000/uL Absolute Lymphocytes 0.75 L (1.2-3.4) k/cumm BUN 36 H (7-18) mg/dL Creatinine 1.71 H (0.70-1.30) mg/dL Calcium 8.4 L (8.5-10.1) mg/dL Magnesium 1.7 L (1.8-2.4) mg/dL Vital Signs Temperature 37.0 C 12/18/19 07:28 Temperature Source Tympanic 12/18/19 07:28 Pulse 70 12/18/19 07:28 Pulse Rhythm Regular 12/18/19 07:40 Respiratory Rate 20 12/18/19 10:16 Respiratory Effort 12/18/19 10:16 Respiratory Depth Shallow 12/18/19 10:16 Respiratory Pattern Normal 12/18/19 10:16 Blood Pressure 104/62 12/18/19 07:28 Blood Pressure Position Supine 12/17/19 07:13 Pulse Oximetry 93 L 12/18/19 12:31 Oxygen Delivery Method Nasal Cannula 12/18/19 12:31 Oxygen Flow Rate 1 12/18/19 12:31 Pain Level 7 12/18/19 07:49 Intake & Output 12/17/19 12/18/19 12/18/19 23:59 11:59 23:59 Intake Total 50 / 50 590 / 590 Output Total 150 / 150 Balance -100 / -100 590 / 590 Intake: IV Oral 50 / 50 580 / 580 Output: Urine 150 / 150 Other: Urine Color Light Lida Urine Appearance Clear Clear Urine Odor Normal Voiding Methods Urinal Laboratory Results WBC 3.54 k/cumm (4.4-10.8) L D 12/18/19 06:26 RBC 3.47 m/cumm (4.50-6.00) L 12/18/19 06:26 Hgb 11.2 g/dL (13.5-17.5) L 12/18/19 06:26 Hct 34.7 % (40.0-50.0) L 12/18/19 06:26 MCV 100.0 fL (80-95) H 12/18/19 06:26 MCH 32.3 pg (27.0-33.0) 12/18/19 06:26 MCHC 32.3 g/dL (32.0-36.0) 12/18/19 06:26 RDW 13.9 % (11.8-14.1) 12/18/19 06:26 Plt Count 81 x1000/uL (130-400) L 12/18/19 06:26 MPV 10.5 fL (8.0-11.0) 12/18/19 06:26 Immature Gran % 0.3 % 12/18/19 06:26 Neutrophils % 64.1 12/18/19 06:26 Lymphocytes % 21.2 12/18/19 06:26 Monocytes % 11.6 12/18/19 06:26 Eosinophils % 2.5 12/18/19 06:26 Basophils % 0.3 12/18/19 06:26 Absolute Neutrophils 2.27 k/cumm (1.2-6.7) 12/18/19 06:26 Absolute Lymphocytes 0.75 k/cumm (1.2-3.4) L 12/18/19 06:26 Absolute Monocytes 0.41 k/cumm (0.11-0.7) 12/18/19 06:26 Absolute Eosinophils 0.09 k/cumm (0.0-0.7) 12/18/19 06:26 Absolute Basophils 0.01 k/cumm (0.0-0.2) 12/18/19 06:26 Differential Comment Diff reviewed 12/18/19 06:26 RBC Morphology See below 12/18/19 06:26 Polychromasia Present 12/18/19 06:26 Sodium 139 mmol/L (136-145) 12/18/19 06:26 Potassium 4.7 mmol/L (3.5-5.1) 05/04/20 06:26 Chloride 107 mmol/L (98-107) 12/18/19 06:26 Carbon Dioxide 22.5 mmol/L (21.0-32.0) 12/18/19 06:26 Anion Gap 9.5 mmol/L (3-11) 12/18/19 06:26 BUN 36 mg/dL (7-18) H 12/18/19 06:26 Creatinine 1.71 mg/dL (0.70-1.30) H 12/18/19 06:26 Estimated GFR/1.73 m2 39.22 (mL/min/1.73m2) 12/18/19 06:26 Glucose 98 mg/dL (74-106) 12/18/19 06:26 Calcium 8.4 mg/dL (8.5-10.1) L 12/18/19 06:26 Magnesium 1.7 mg/dL (1.8-2.4) L 12/18/19 06:26 Total Bilirubin 0.8 mg/dL (0.2-1.0) 12/17/19 08:40 AST 25 U/L (15-37) 12/17/19 08:40 ALT 33 U/L (16-63) 12/17/19 08:40 Alkaline Phosphatase 158 U/L (46-116) H 12/17/19 08:40 Total Protein 7.2 g/dL (6.4-8.2) 12/17/19 08:40 Albumin 3.2 g/dL (3.4-5.0) L 12/17/19 08:40 COVID-19 PCR Negative (Negative) 12/17/19 08:50 Nasopharyn COVID-19 PCR Not Applicable 12/17/19 08:50 Ref Test Perform Site [facility] lab 12/17/19 08:50
[2019-12-18] MEDS: Albuterol/Ipratropium 3 ML UPD VIAL UPD (15:37)
[2019-12-18] MEDS: Furosemide 100 MG/10 ML VIAL 80 MG IVP (16:11)
[2019-12-18 16:40] LABS: BE -3.7 mmol/L (-3-3); HCO3 22 mmol/L (22-28); pCO2 39 mmHg (34-47); pH 7.36 (7.35-7.45); pO2 62 mmHg (83-108); sO2 91 % (94-98); tCO2 20 mmol/L (22-29)
--- NOTE | 2019-12-18 16:41 | PT.INNT ---
Date of service: 12/18/19 PT Notes Visit Reasons: HUMERUS FRACTURE LEFT Four attempts have been made today at doing low intensity exercises and bed mobility retraining. Jakub was with the x-ray staff person during this PT's first visit in the morning around 10:05 am. A brachial plexus block done supraclaviculary late morning from 10:53-11:16 (per chart) as patient had a difficult night last night due to unresolved pain from L shoulder despite oxycodone and morphine use. Stat ABG, EKG, D-dimer, and BNP were ordered as well due to patient's complaint of shortness of breath making patient unavailable the whole afternoon for any PT session. Per patient, prosthesis was brought in by this morning. Will plan on seeing patient BID tomorrow for bed mobility ad transfer training as tolerated.
[2019-12-18 16:45] LABS: FIO2L 3 L; Site Right Radial
[2019-12-18 17:04] LABS: D-Dimer 2032 ng/mlFEU (<500)
[2019-12-18] MEDS: Lidocaine 2% Jelly 11 ML SYR UR (17:16)
--- NOTE | 2019-12-18 17:44 | CMPROGNOTE_ITS ---
- If Service Date Differs Date of service: 12/18/19 Time of Service: 17:45 Care Management Progress Note S/O: Jakub was sitting up in bed when CM met with him. He stated he was having a lot of pain in his shoulder. It was not well controlled with morphine and oxycodone so a block was performed by anesthesia this morning with good effect. This afternoon Jakub began to experience increasing SOB. A repeat chest xray and EKG and ABGs were done and revealed that he has a fluid overload. Lasix was or dered and a kline catheter was placed. [facility] [place] Jakub reported that he was feeling a bit better. CM to follow. A: Jakub is a 74 year old man admitted on 12/17/19 with a fractured humerus P: Jakub will likely be transferred to [facility] when medically stable. A referral was sent by CM with a tentative bed offer received, pending Medicare approval. CM will continue to support patient, family and discharge planning concerns.
[2019-12-18] MEDS: Budesonide/Formoterol 80/4.5 6.9 GM 60 PUFF INH IH (19:44)
[2019-12-18] MEDS: guaiFENesin 600 MG TABCR PO (19:44)
[2019-12-18] MEDS: Aspirin 81 MG CHEW PO (22:09)
[2019-12-19] VITALS (8 sets, daily range): BP systolic 110–142; BP diastolic 65–90; PULSE 65–99; RESP 17–19; TEMP 36.2–36.8; O2SAT 92–97
[2019-12-19 07:07] LABS: Abs Immature Grans 0.01 k/cumm (0.0-0.09); Absolute Basophil Count 0.01 k/cumm (0.0-0.2); Absolute Eosinophil Count 0.09 k/cumm (0.0-0.7); Absolute Lymphocyte Count 0.71 k/cumm (1.2-3.4); Absolute Monocyte Count 0.49 k/cumm (0.11-0.7); Absolute Neutrophil Count 4.01 k/cumm (1.2-6.7); Basophils % 0.2; Eosinophils % 1.7; HCT 36.3 % (40.0-50.0); HGB 11.9 g/dL (13.5-17.5); Immature Grans % 0.2 %; Lymphocytes % 13.3; Mean Corp. HGB Concentration 32.8 g/dL (32.0-36.0); Mean Corpuscular Hemoglobin 32.1 pg (27.0-33.0); Mean Corpuscular Volume 97.8 fL (80-95); Mean Platelet Volume 10.3 fL (8.0-11.0); Monocytes % 9.2; Neutrophils % 75.4; RBC 3.71 m/cumm (4.50-6.00); RBC Distribution Width 13.7 % (11.8-14.1); White Blood Cell Count 5.32 k/cumm (4.4-10.8)
[2019-12-19 07:26] LABS: BUN 42 mg/dL (7-18); CREATININE 1.82 mg/dL (0.70-1.30); Calcium 8.8 mg/dL (8.5-10.1); Chloride 104 mmol/L (98-107); Ferritin 153 ng/mL (26-388); Glucose 92 mg/dL (74-106); Potassium 4.7 mmol/L (3.5-5.1); Sodium 138 mmol/L (136-145)
[2019-12-19 07:37] LABS: Folate 18.4 ng/mL (8.6-20.0); Vitamin B12 219 pg/mL (193-986)
[2019-12-19 07:40] LABS: Iron 62 ug/dL (65-175); Total Iron Binding Capacity 211 ug/dL (250-450)
[2019-12-19] MEDS: Budesonide/Formoterol 80/4.5 6.9 GM 60 PUFF INH IH ×2 (07:54→20:07)
[2019-12-19 07:58] LABS: Diff Comment Diff Reviewed; Platelet Count 86 x1000/uL (130-400)
[2019-12-19 07:59] LABS: Polychromasia Present
[2019-12-19] MEDS: Rosuvastatin 10 MG TAB 20 MG PO (08:32)
[2019-12-19] MEDS: Ascorbic Acid 500 MG TAB PO (08:33)
[2019-12-19] MEDS: Polyethylene Glycol 3350 17 GM PACKET PO ×2 (08:33→20:07)
[2019-12-19] MEDS: Senna TAB 1 TAB PO ×2 (08:33→20:07)
[2019-12-19] MEDS: guaiFENesin 600 MG TABCR PO ×2 (08:33→20:06)
--- NOTE | 2019-12-19 08:57 | OTIE_ITS ---
Occupational Therapy Notes Inpatient Occupational Therapy Evaluation Date: 12/19/19 Referring Doctor: Heather Monroe NP OT Orders: Non-Urgent Precautions: Fall, DNR/DNI PATIENT PROFILE/ADMITTING DIAGNOSIS: Pt is a 74 year old male who presented to the ER on 12/17/19 for a fx of his (L) humerus. Pt recently underwent a (R) leg below the knee amputation and (L) leg partial foot amputation. He uses a wheelchair and transfers with a prosthetic on his (R) leg with use of his upper body. He fell while transferring into bed. He is unable to transfer into his bed at this time due to (L) humerus fx. Pt was admitted to the Med Surg floor with the following dx, fx (L) humerus fx, HTN, s/p CABG x3, DM II, peripheral vascular disease. Pt does have a cough which he exhibits multiple times throughout session. He was tested for Covid-19 which was negative. OT attempted to consult with pt yesterday but was placed on hold due to nerve block placement per nursing. Past Medical History- Medical History Anemia due to chronic kidney disease (Acute) Aortic stenosis (Chronic) ASHD (arteriosclerotic heart disease) (Acute) BPH (benign prostatic hyperplasia) (Chronic) Cardiomyopathy, dilated (Acute) Cardiomyopathy, ischemic (Acute) Chronic kidney disease, stage 3 (Acute) COPD (chronic obstructive pulmonary disease) (Chronic) Depression (Chronic) DNR (do not resuscitate) (Acute) Hx of osteomyelitis (Acute) Hyperlipidemia (Acute) Hypertension (Chronic) Hypoalbuminemia (Acute) Left ventricular systolic dysfunction (Acute) Leg edema, left (Acute) Nonproliferative diabetic retinopathy (Acute) Old non-ST elevation myocardial infarction (NSTEMI) (Acute) Peripheral vascular disease (Chronic) Phantom limb (syndrome) (Acute) Psoriasis of scalp (Acute) Shoulder pain, left (Acute) Systemic inflammatory response syndrome, unspecified (Acute) Thrombocytopenia (Chronic) Tobacco abuse (Acute) Type 2 diabetes mellitus with polyneuropathy (Acute) Surgical History H/O heart artery stent (Chronic) History of amputation of lesser toe of right foot (Acute) Hx of aortic valve replacement (Acute) Hx of right BKA (Acute) S/P CABG x 3 (Acute) Current Functional Limitations: (L) humerus fx, decreased functional use of (L) UE required for performance of bathing, dressing and selfcare routines. Increased pain with any functional ROM of (L) UE, decreased gross and fine motor control of (L) UE, inability to perform functional mobility required for ADL/IAD L routines, decreased ability to safely transfer to wheelchair. Social History/Home Situation: Pt lives in a private home with his . He reports that his will follow him with the wheelchair when he is performing functional mobility with FWW due to phantom limb pain that pt experiences from time to time. He reports that the pain is so bad at times that he collapses back into the wheelchair without notice. Pt has a (R) LE prothesis which he is able to (I) don and doff at his baseline level of function. He states that at his baseline level of function he is (I) with dressing both UE/LE, he is (I) with toileting with a raised toilet seat, he denies the need for bedside commode and reports that at night he just transfers into the wheelchair and back into bed. If needed he has a jug which he describes as an old laundry jug that he uses as a urinal at night, he can perform his bathing in a tub/shower which he has a shower seat. He reports that he steps over the side of the tub and then can perform with removable shower head. He has a manual and electric wheelchair. His home is set up so that it is one level. He is able to (I) transfer into the car at baseline from his wheelchair. He performs only 60-70 feet functional mobility with his FWW. His takes care of cooking, cleaning, laundry. Equipment owned/DME: FWW, manual wheelchair, electric wheelchair, grab bars, raised toilet seat. SUBJECTIVE: Pt was sitting in bed when OT arrived. He was agreeable to OT session. He initially reports that his pain is about a 3/10 and then towards the end of session states that he feels that it is increasing to about a 7-8/10 in his (L) shoulder. He does not currently have his prothesis in the hospital and reports that he is not willing to perform a lot of ADLS/functional mobility without it. Pt is calling his to have her bring it to him for hopefully later this afternoon. OBJECTIVE: General Observation: IV (R) UE connected, kline in place, (R) BKA, (L) foot partial amputation with fair color, sensation intact to (B) UE, Numbness in (L) foot to mid calf. Mental Status: A&Ox3 Pain: C/o pain in (L) shoulder at 7-8/10 *Pt is (R) hand dominant. ROM: RUE AROM WFL throughout L UE AROM WFL throughout STRENGTH: RUE Globally 4/5 throughout LUE [employer] Member is strong, unable to assess shoulder, wrist, forearm and digits due to pain and fx SENSATION: Intact (B) UE, decreased sensation (L) UE. FUNCTIONAL MOBILITY/ADLS: Transfers with (R) LE prothesis and wheelchair. Unable to assess as pt does not have prothesis with him at this time. BATHING Pt denies at todays session, reporting that he got washed up last night. Functionally pt has ability to perform bathing with (R) UE, he will require (A) with washing his (R) side d/t lack of (L) UE ROM and pain at this time. DRESSING In seated position- pt denies performance of dressing reporting that nursing has been performing this max (A) for him. He does have functional ROM of his (R) UE. He will benefit from education of don and doffing shirt with one handed technique. OT provided pt with grabber, sock aid and dressing stick to decrease need of (A) during ADL routines. Pt would like to hold on dressing until (R) LE prothesis is brought to hospital. GROOMING Pt denies oral hygiene at todays session. TOILETING Unable to assess as pt cannot transfer without use of (R) LE prothesis. Pt is currently utilizing a bed kidd for bowel movements and kline. Based on examination pt will require (A) with maintaining dina area hygiene as well as adjusting clothing before and after bowel movement without functional use of (L) UE. OT discussed with pt adaptive equipment for toileting hygiene which he is not interested in at this time. EATING In seated position, pt is (I) with food to mouth and suitable use of utensils, with ideal technique for swallow with no choking or difficulty. Pt requires (A) with opening package due to decreased (B) UE use and decreased gross and fine motor control of (L) UE. BALANCE: Static sitting Normal Dynamic Sitting Normal Static Standing Unable to test Dynamic Standing Unable to test SPECIAL TESTS: Daily Activity Limitations Standardized Measure [facility] AM -PAC ?6 clicks? Daily Activity Inpatient Short Form: Raw score: 15 Standardized score: 34.69 CMS score: 56.46% INFORMED CONSENT/EDUCATION: Pt instructed in purpose of OT Consult and plan of care. ASSESSMENT: Patient is a 74-year-old male referred to occupational therapy services with diagnosis of fx (L) humerus fx, HTN, s/p CABG x3, DM II, peripheral vascular disease. Patient presents with clinical signs and symptoms consistent with dx, as demonstrated by the following impairment level findings: Pain in (L) UE 7-8/10 at rest, decreased gross and fine motor control of (L) UE required for functional (I) in ADL/IADL routines, non weighting in (L) UE due to humerus fx, decreased bed mobility, decreased functional mobility limited by non weight bearing to (L) UE d/t fx required for performance of ADL/IADL routines. Impairments are contributing to the following functional limitations: Pt is not able to perform his ADLs/IADLs at his baseline level of function due to inability to perform UE/LE dressing without (A) at this time without substantial/max (A), Unable to (I) open packages during eating routine without supervision/touching (A), oral hygiene requires setup/cleanup (A), toileting hygiene requires partial/moderate (A) with ability to maintain dina area hygiene, adjust his clothing before and after voiding, washing UE requires supervision/touching (A)/min (A) with washing face, hands (I), chest (I), (R) UE is max (A) at this time due to decreased AROM of (L) UE, UE dressing pt would require max (A) with dressing fasteners, partial/mod (A) with don and doffing shirt overhead. Pt would benefit from skilled Occupational Therapy services for adaptive equipment due to (L) UE limitations, education and training in one handed bathing/dressing techniques, education in energy conservation techniques not limited to but including self-care tasks. AMPAC score 15 Patient is assessed as a high [id number] complexity based on the following: History: See Above Examination: See functional limitations and impairments as noted above Presentation: Evolving Decision Making: AMPAC score 15 GOALS Goals x1 week 1. Transfers with (R) LE prothesis from bed to wheelchair (S) 2. Dressing in sitting position pt will be able to demonstrate UE dressing (I), LE dressing with min (A) 3. Bathing in sitting position pt will require max (A) for (R) UE, otherwise mod (A) for UE/LE with use of (R) UE for performance. 4. Toileting on commode with min (A) 5. Eating (I) in seated position 6. Grooming- Sitting on side of bed pt will be (I) with brushing teeth with max (A) set up PLAN OF CARE/TREATMENT PLAN: 1x/day, 5 days/ week x 1week Initiate Occupational Therapy Services for bathing, dressing, grooming, toileting, eating, transfer training to increase pts functional (I) in ADL/IADL activities and improve pt's overall quality of life. DISCHARGE RECOMMENDATIONS Based on pt's current level of function and assessment of pts functional abilities at this time of consult, OT recommends that pt go to SNF. TREATMENT TIME/MINUTES/CODES [id number], 30 minutes (08:25) MARIL[facility]
[2019-12-19] MEDS: Carvedilol 12.5 MG TAB 25 MG PO ×2 (10:58→22:00)
[2019-12-19] MEDS: Heparin 5,000 UNITS/ML VIAL 5000 UNITS SC ×2 (10:58→17:24)
--- NOTE | 2019-12-19 11:04 | W.PM.PROGNOT ---
Date of Service Date of service: 12/19/19 Time of Service: 11:05 Assessment and Plan Assessment and plan (1) Fracture of humerus, left, closed: Status: Acute Assessment and plan: patient reports no improvement with oral narcotics in pain so refusing to take them. will schedule tylenol, leave them prn if he wants. continue sling, PT and f/u with orthopedics outpatient Qualifiers: Encounter type: initial encounter Fracture alignment: nondisplaced Fracture morphology: unspecified fracture morphology Humerus Location: surgical neck Qualified Code(s): S42.215A - Unspecified nondisplaced fracture of surgical neck of left humerus, initial encounter for closed fracture (2) Cardiomyopathy, ischemic: Status: Acute Assessment and plan: fluid overload improved on lasix drip. no shortness of breath or oxygen requirements. weight down 5 kg since admission he stopped taking bumex a few weeks ago because he was sick of peeing himself. will resume bumex 2 mg po daily. continue I&O, continue daily weights. He is followed outpatient by Dr Zamudio and per last note in October 2019, last EF 30-35% and pt not interested in ICD therapy. plan to continue losartan 25 mg daily, carvedilol 25 mg BID, crestor and asa. we will stop lasix drip and resume bumex. 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 discussed low salt diet again, which he admits he is not compliant with. (3) REESE (acute kidney injury): Status: Acute Assessment and plan: BUN and creatinine on the rise, will stop lasix drip, resume oral bumex. monitor closely and adjust medications as needed. renal dosing as needed, avoid nephrotoxic drugs. check BMP in am (4) Peripheral vascular disease: Status: Chronic Assessment and plan: s/p right BKA and left MTA. will continue asa, (5) Anemia in chronic kidney disease: Status: Acute Assessment and plan: will replace iron, no signs of bleeding. will continue to monitor, appears stable. (6) DVT prophylaxis: Status: Acute Assessment and plan: continue heparin, continue to monitor platelets and hold for drop or bleeding. (7) Discharge planning issues: Status: Acute Assessment and plan: plan to discharge to [facility] and rehab tomorrow if stable, covid 19 test negative. Subjective Subjective Patient reports: no new complaints, feels better, still having pain, tolerating liquids well, tolerating a regular diet and afebrile; denies shortness of breath Exam Const General: cooperative, healthy appearing, comfortable, no acute distress and well developed Nutritional Appearance: average body habitus Orientation: alert, awake and oriented x3 Limitations: other limitations (hard of hearing) [facility] Head: normal to inspection, normocephalic and atraumatic Mouth: oral mucosae normal Cardio Jugular venous pressure: no JVD Rate: regular rate Heart Sounds: murmur systolic harsh GI Inspection: normal to inspection Palpation: soft Auscultation: normal bowel sounds Skin General skin exam: no rashes or lesions noted Neuro General: patient alert, patient awake and patient oriented x3 Speech: speech normal Gait: gait assisted Method: other (prosthetic leg) Motor: muscle tone normal throughout Extrem General: amputation noted Below the knee: right and Transmetatarsal: left (with improved edema) Objective Objective Clinical Data: Abnormal lab results 12/18/19 12/18/19 12/18/19 Range/Units 16:05 16:05 16:40 RBC (4.50-6.00) m/cumm Hgb (13.5-17.5) g/dL Hct (40.0-50.0) % MCV (80-95) fL Plt Count (130-400) x1000/uL Absolute Lymphocytes (1.2-3.4) k/cumm D-Dimer 2032 H (<500) ng/mlFEU ABG pO2 62 L (83-108) mmHg ABG Total CO2 20 L (22-29) mmol/L ABG O2 Saturation 91 L (94-98) % ABG Base Excess -3.7 L (-3-3) mmol/L BUN (7-18) mg/dL Creatinine (0.70-1.30) mg/dL Iron (65-175) ug/dL TIBC (250-450) ug/dL NT-Pro-B Natriuret Pep 36377 H (<300) pg/mL 12/19/19 12/19/19 12/19/19 Range/Units 06:30 06:30 06:30 RBC 3.71 L (4.50-6.00) m/cumm Hgb 11.9 L (13.5-17.5) g/dL Hct 36.3 L (40.0-50.0) % MCV 97.8 H (80-95) fL Plt Count 86 L (130-400) x1000/uL Absolute Lymphocytes 0.71 L (1.2-3.4) k/cumm D-Dimer (<500) ng/mlFEU ABG pO2 (83-108) mmHg ABG Total CO2 (22-29) mmol/L ABG O2 Saturation (94-98) % ABG Base Excess (-3-3) mmol/L BUN 42 H (7-18) mg/dL Creatinine 1.82 H (0.70-1.30) mg/dL Iron 62 L (65-175) ug/dL TIBC 211 L (250-450) ug/dL NT-Pro-B Natriuret Pep (<300) pg/mL Vital Signs Temperature 36.5 C 12/19/19 07:45 Temperature Source Tympanic 12/19/19 07:45 Pulse 65 12/19/19 07:45 Pulse Rhythm Regular 12/19/19 05:19 Respiratory Rate 18 12/19/19 07:45 Respiratory Effort Non-Labored 12/19/19 05:19 Respiratory Depth Shallow 12/19/19 05:19 Respiratory Pattern Normal 12/19/19 05:19 Blood Pressure 142/79 H 12/19/19 07:45 Blood Pressure Position Supine 12/17/19 07:13 Pulse Oximetry 93 L 12/19/19 08:07 Oxygen Delivery Method Room Air 12/19/19 08:07 Oxygen Flow Rate 0 12/19/19 08:07 Pain Level 0 12/19/19 03:36 Intake & Output 12/18/19 12/18/19 12/19/19 11:59 23:59 11:59 Intake Total 590 / 1080 490 / 1080 Output Total 1200 / 1200 3150 / 3150 Balance 590 / -120 -710 / -120 -3150 / -3150 Weight 82.7 kg Intake: IV 10 / 500 490 / 500 Oral 580 / 580 Output: Urine 1200 / 1200 3150 / 3150 Other: Urine Color Pale Pale Yellow Urine Appearance Clear Clear Clear Voiding Methods Urinal Laboratory Results WBC 5.32 k/cumm (4.4-10.8) D 12/19/19 06:30 RBC 3.71 m/cumm (4.50-6.00) L 12/19/19 06:30 Hgb 11.9 g/dL (13.5-17.5) L 12/19/19 06:30 Hct 36.3 % (40.0-50.0) L 12/19/19 06:30 MCV 97.8 fL (80-95) H 12/19/19 06:30 MCH 32.1 pg (27.0-33.0) 12/19/19 06:30 MCHC 32.8 g/dL (32.0-36.0) 12/19/19 06:30 RDW 13.7 % (11.8-14.1) 12/19/19 06:30 Plt Count 86 x1000/uL (130-400) L 12/19/19 06:30 MPV 10.3 fL (8.0-11.0) 12/19/19 06:30 Immature Gran % 0.2 % 12/19/19 06:30 Neutrophils % 75.4 12/19/19 06:30 Lymphocytes % 13.3 12/19/19 06:30 Monocytes % 9.2 12/19/19 06:30 Eosinophils % 1.7 12/19/19 06:30 Basophils % 0.2 12/19/19 06:30 Absolute Neutrophils 4.01 k/cumm (1.2-6.7) 12/19/19 06:30 Absolute Lymphocytes 0.71 k/cumm (1.2-3.4) L 12/19/19 06:30 Absolute Monocytes 0.49 k/cumm (0.11-0.7) 12/19/19 06:30 Absolute Eosinophils 0.09 k/cumm (0.0-0.7) 12/19/19 06:30 Absolute Basophils 0.01 k/cumm (0.0-0.2) 12/19/19 06:30 Differential Comment Diff reviewed 12/19/19 06:30 RBC Morphology See below 12/19/19 06:30 Polychromasia Present 12/19/19 06:30 D-Dimer 2032 ng/mlFEU (<500) H 12/18/19 16:05 ABG Sample Site Right radial 12/18/19 16:40 ABG pH 7.36 (7.35-7.45) 12/18/19 16:40 ABG pCO2 39 mmHg (34-47) 12/18/19 16:40 ABG pO2 62 mmHg (83-108) L 12/18/19 16:40 ABG HCO3 22 mmol/L (22-28) 12/18/19 16:40 ABG Total CO2 20 mmol/L (22-29) L 12/18/19 16:40 ABG O2 Saturation 91 % (94-98) L 12/18/19 16:40 ABG Base Excess -3.7 mmol/L (-3-3) L 12/18/19 16:40 Oxygen Liter Flow 3 L 12/18/19 16:40 Sodium 138 mmol/L (136-145) 12/19/19 06:30 Potassium 4.7 mmol/L (3.5-5.1) 12/19/19 06:30 Chloride 104 mmol/L (98-107) 12/19/19 06:30 Carbon Dioxide 25.0 mmol/L (21.0-32.0) 12/19/19 06:30 Anion Gap 9.0 mmol/L (3-11) 12/19/19 06:30 BUN 42 mg/dL (7-18) H 12/19/19 06:30 Creatinine 1.82 mg/dL (0.70-1.30) H 12/19/19 06:30 Estimated GFR/1.73 m2 36.50 (mL/min/1.73m2) 12/19/19 06:30 Glucose 92 mg/dL (74-106) 12/19/19 06:30 Calcium 8.8 mg/dL (8.5-10.1) 12/19/19 06:30 Magnesium 1.7 mg/dL (1.8-2.4) L 12/18/19 06:26 Iron 62 ug/dL (65-175) L 12/19/19 06:30 TIBC 211 ug/dL (250-450) L 12/19/19 06:30 Ferritin 153 ng/mL (26-388) 12/19/19 06:30 Total Bilirubin 0.8 mg/dL (0.2-1.0) 12/17/19 08:40 AST 25 U/L (15-37) 12/17/19 08:40 ALT 33 U/L (16-63) 12/17/19 08:40 Alkaline Phosphatase 158 U/L (46-116) H 12/17/19 08:40 NT-Pro-B Natriuret Pep 48005 pg/mL (<300) H 12/18/19 16:05 Total Protein 7.2 g/dL (6.4-8.2) 12/17/19 08:40 Albumin 3.2 g/dL (3.4-5.0) L 12/17/19 08:40 Vitamin B12 219 pg/mL (193-986) 12/19/19 06:30 Folate 18.4 ng/mL (8.6-20.0) 12/19/19 06:30 COVID-19 PCR Negative (Negative) 12/17/19 08:50 Nasopharyn COVID-19 PCR Not Applicable 12/17/19 08:50 Ref Test Perform Site [facility] hospital lab 12/17/19 08:50
[2019-12-19] MEDS: Acetaminophen 325 MG TAB PO (11:15)
[2019-12-19 11:21] LABS: NT-proBNP 18627 pg/mL (<300)
[2019-12-19] MEDS: Insulin Aspart 300 UNITS/3 ML PEN SC (12:01)
--- NOTE | 2019-12-19 13:29 | W.INDIABCONS ---
Date of service: 12/19/19 Time of Service: 13:30 Diabetes Inpatient Consult DESCRIPTION/ASSESSMENT: 74 year old male admitted with fracture of humerus. PMH: Anemia of Chronic Kidney Dx, CABG x3, polyneuropathy, Right BKA, chronic pain, Dm, PVD. Hx of smoking. BMI wnl for age. Labs indicate well controlled blood sugars while hospitalized, past A1C (02/2019 6.5%) indicates prediabetes. Does not take medications for diabetes. Following Heart Healthy Diet with adequate intake. Explained risks of elevated A1C and importance of avoiding diabetes by controlling blood sugar with diet and exercise. Mr. Murillo declined diabetes education as he states he does not have diabetes. INTERVENTION: Diabetic Education Consult- pt refused PLAN: will be available prn, contact information provided if wants further education Time Spent in Nutritional Counseling and Treatment: 5 min spent face to face
[2019-12-19] MEDS: Bumetanide 1 MG TAB 2 MG PO (13:56)
--- NOTE | 2019-12-19 14:06 | PT.INNT ---
Date of service: 12/19/19 Time of Service: 08:30 PT Notes Visit Reasons: HUMERUS FRACTURE LEFT Attempted to see patient this am for functional mobility assessment. Patient still did not have prosthesis in hospital. Was going to contact his to bring so transfers could be assessed in PM.
--- NOTE | 2019-12-19 14:55 | PTTR_ITS ---
Date of service: 12/19/19 Time of Service: 14:56 PT Notes Visit Reasons: HUMERUS FRACTURE LEFT Inpatient Physical Therapy Treatment Note [facility] Date: December 19, 2019 PRECAUTIONS:Fall Contact Droplet, NWB L UE sling on at all times SUBJECTIVE: Paxton reports that he is not getting out of bed today due to his left shoulder pain. He reports 8/10 on VAS without movement. He notes that he will be going to [facility] tomorrow. OBJECTIVE: Observation: IV access right UE, kline catheter, sling Left UE with cryocuff in place, Left to UE in sling. Right below-knee residual limb intact. Left trans metatarsal amputation seen. PAIN: 8/10 left shoulder BED MOBILITY/TRANSFERS : Patient continues to refuse all functional transfers due to his left shoulder pain. GAIT N/T due to patient refusal THEREX: Completed quad sets x10 R/L, SLR x10 R/L, hip flexion and abduction in supine x10 R/L, SAQ x10 R/L, followed by right shoulder flexion x10, and elbow flexion x10. Noted some mild pain in the left foot post exercise completion. ASSESSMENT: Inability to put weight on left UE due to recent fracture therefore continuing to limit ability to assess functional transfers and mobility. Demonstrates functional mobility decline. Tolerated light exercises. However continues to refuse all functional transfers. PLAN:Continue with current POC within symptom allowance. DISCHARGE RECOMMENDATIONS: Patient will benefit from [facility] facility placement for continued skilled physical therapy services in order to progress mobility level, strength, and balance in preparation for a safe discharge to home. TREATMENT CODE/TIME: [id number] 15 minutes 14:40PM
[2019-12-19] MEDS: Acetaminophen 325 MG TAB 650 MG PO ×2 (15:31→20:06)
--- NOTE | 2019-12-19 17:17 | PDOC.CMPRO ---
- If Service Date Differs Date of service: 12/19/19 Time of Service: 17:17 Care Management Progress Note S/O: Paxton was lying in bed when CM met with him. His primary RN had previously asked CM to meet with him regarding concerning statements he made. MEL had a long discussion with Jakub regarding his goals of care and how he was feeling at that time. He stated that he was very tired, as he had been woken up several times throughout the night. He also stated that he is in a lot of pain with his broken arm, which makes everything more difficult for him, including the use of his prosthetic leg. CM asked if he was feeling suicidal, which he adamantly stated that he was not. He stated that he is [employer], and is not planning on going to [facility]. He mentioned that he had jokingly stated that he 'would like a bullet' when asked if he needed anything else, but it was simply his frustration with the situation at the time. He stated that PT was pushing him very hard, and he was very tired. He reported that he knows he needs to work with them, but he asked if they could be more gentle with him during this acute phase of healing. CM discussed the plan with him, which is to go to [facility] tomorrow, as long as he is medically stable enough to do so. He is agreeable to this plan, as he has had a positive experience with [facility] in the past. CM will continue to follow. A: Jakub is a 74 year old man admitted on 12/17/19 with a fractured humerus P: Jakub will likely be transferred to [facility] when medically stable. A referral was sent by MEL with a tentative bed offer received, pending Medicare approval. MEL will coordinate w/c van with admissions at [facility] upon his discharge. CM will continue to support patient, family and discharge planning concerns.
[2019-12-19] MEDS: oxyCODONE 5 MG TAB PO (20:07)
[2019-12-19] MEDS: Aspirin 81 MG CHEW PO (22:00)
[2019-12-19] MEDS: MORPHine 2 MG/ML SYR IVP (22:00)
[2019-12-19] MEDS: Normal Saline Flush 10 ML SYR IVP (22:01)
[2019-12-20 00:40] VITALS: BP 115/68; PULSE 69; RESP 17; TEMP 36.6; O2SAT 93
[2019-12-20] MEDS: Heparin 5,000 UNITS/ML VIAL 5000 UNITS SC ×3 (01:23→17:53)
[2019-12-20] MEDS: Ibuprofen 800 MG TAB PO (06:17)
[2019-12-20 06:26] LABS: Abs Immature Grans 0.01 k/cumm (0.0-0.09); Absolute Basophil Count 0.01 k/cumm (0.0-0.2); Absolute Eosinophil Count 0.11 k/cumm (0.0-0.7); Absolute Lymphocyte Count 0.91 k/cumm (1.2-3.4); Absolute Monocyte Count 0.48 k/cumm (0.11-0.7); Basophils % 0.2; Eosinophils % 2.3; HCT 36.8 % (40.0-50.0); HGB 12.5 g/dL (13.5-17.5); Immature Grans % 0.2 %; Lymphocytes % 19.3; Mean Corpuscular Hemoglobin 32.6 pg (27.0-33.0); Mean Corpuscular Volume 95.8 fL (80-95); Mean Platelet Volume 9.8 fL (8.0-11.0); Monocytes % 10.2; Neutrophils % 67.8; Platelet Count 104 x1000/uL (130-400); RBC 3.84 m/cumm (4.50-6.00); RBC Distribution Width 13.4 % (11.8-14.1); White Blood Cell Count 4.72 k/cumm (4.4-10.8)
[2019-12-20 06:47] LABS: BUN 47 mg/dL (7-18); CREATININE 1.77 mg/dL (0.70-1.30); Calcium 8.9 mg/dL (8.5-10.1); Chloride 102 mmol/L (98-107); Estimated GFR 37.69 (mL/min/1.73m2); Glucose 122 mg/dL (74-106); NT-proBNP 23080 pg/mL (<300); Potassium 4.3 mmol/L (3.5-5.1); Sodium 138 mmol/L (136-145)
[2019-12-20 07:25] VITALS: BP 150/77; PULSE 67; RESP 17; TEMP 36.1; O2SAT 96
[2019-12-20] MEDS: Budesonide/Formoterol 80/4.5 6.9 GM 60 PUFF INH IH ×2 (08:00→20:36)
--- NOTE | 2019-12-20 08:34 | OTTR_ITS ---
Date of service: 12/20/19 Time of Service: 07:55 Occupational Therapy Notes Occupational Therapy Inpatient Treatment Note Date: 12/20/19 PRECAUTIONS: Fall, Standard, DNR/DNI SUBJECTIVE: Pt was sitting in bed when OT arrived. He reports that he thinks he is going to [facility] today. He states that when in resting position he has no pain but any functional ROM of (L) UE he reports a 10/10 pain. He states that he is not willing to perform any functional mobility at this time. OBJECTIVE: PAIN:Rest 0/10, Any slight movement or AROM 10/10 (L) UE FUNCTIONAL MOBILITY - Pt denies all functional ROM of (L) UE BATHING: Sitting in bed with core supported on bed in inclined position. Upper Body: with mod vc pt was able to (I) wash (L) UE, abdomen and face/(B) hands. OT performed max (A) for (R) UE due to lack of ROM of (L) UE at this time. Hair was mod (A) with shower cap with min vc. Back was max (A), pt was able to transition using v-bar above head. Lower Body: Pt was (I) with dina area with use of (R) UE, denies (B) LE at this time. DRESSING: Upper Extremity: OT educated and trained pt in don and donning a t-shirt. Pt did refuse performance of this at todays session but was receptive to education and was willing to be educated. Big vc for pt was in first and out last for his (L) UE. Pt denies the need for written or illustrated instructions at this time. GROOMING: In bed (I) with brushing hair, denies teeth as he has minimal in mouth TOILETING: NT- pt has been using a bed kidd. OT encourages pt to transfer to commode when possible EATING: Sitting in bed with max (A) set up for tray, (I) opening covers to cups with (R) hand/digits. Min (A) with use of knife to cut food. Otherwise (I) with hand to mouth and swallowing with no issues at this time. ASSESSMENT/PLAN: Pt was an active participant. He denies any functional mobility d/t pain in his (L) Shoulder but was receptive to education and training. Pt states plan is to transition to [facility]hab today. OT will continue to progress pts functional (I) in ADL/IADL routines and training in one handed dressing/bathing at this time. TREATMENT CODES/TIME: [id number], 35 minutes (07:55) Taylor Cespedes OTR/L [facility]
[2019-12-20] MEDS: Rosuvastatin 10 MG TAB 20 MG PO (09:11)
[2019-12-20] MEDS: Acetaminophen 325 MG TAB 650 MG PO ×3 (09:12→20:36)
[2019-12-20] MEDS: Ascorbic Acid 500 MG TAB PO (09:13)
[2019-12-20] MEDS: guaiFENesin 600 MG TABCR PO ×2 (09:13→20:36)
[2019-12-20] MEDS: Senna TAB 1 TAB PO (09:13)
[2019-12-20] MEDS: Polyethylene Glycol 3350 17 GM PACKET PO (09:13)
[2019-12-20] MEDS: Bumetanide 1 MG TAB 2 MG PO (09:13)
--- NOTE | 2019-12-20 10:33 | PT.INDS ---
Date of service: 12/20/19 Time of Service: 10:34 PT Notes Visit Reasons: HUMERUS FRACTURE LEFT Inpatient Physical Therapy Discharge Summary Dates: December 20, 2019 Dates of Service: 12/17/19-12/20/19 SUBJECTIVE: N/T OBJECTIVE: General Observation: Left to UE in sling. Right below-knee residual limb intact. Left trans metatarsal amputation seen. Mental Status: Alert and oriented x4 Pain: 8/10 pain on the left shoulder at rest and with movement ROM: Right Upper Extremity: Shoulder Flexion WFL. Shoulder abduction WFL. Elbow flexion WFL. Wrist flexion WFL. Opening and closing of hand WFL. Left Upper Extremity: NT due to fracture. Wrist anf fingers WFL. Right Lower Extremity: Hip flexion WFL. Hip abduction WFL. Knee flexion WFL. Left Lower Extremity: Hip flexion WFL. Hip abduction WFL. Knee flexion WFL. Ankle dorsiflexion WFL. Ankle plantarflexion WFL. Strength: Right Upper Extremity: Shoulder flexors 4/5. Shoulder abductors 4/5. Elbow flexors 4/5. Elbow extensors 4/5. Ammunition Storekeeper strong. Left Upper Extremity: NT. Ammunition Storekeeper strong. Right Lower Extremity: Hip flexors 4-/5. Hip abductors 4-/5. Knee flexors 3+/5. Knee extensors 3-/5. Left Lower Extremity: Hip flexors 4-/5. Hip abductors 4-/5. Knee flexors 4-/5. Knee extensors 3-/5. Ankle dorsiflexors 3+/5. Ankle plantarflexors 3+/5. Sensation: Intact as to pain and pressure on R residual limb. Diminished on lower half of leg on the left side down to the rest of the foot. Bed Mobility/Transfers: Rolling moderate assist to right side. Unable to move on left side due to pain on the left shoulder. Supine to sit minimal assist to BLE with patient using overhead trapeze Sit to supine minimal assist to BLE with patient using overhead trapeze Sit to stand NT Patient refused due to pain in L arm Stand to sit NT Patient refused due to pain in L arm Bed to chair NT Patient refused due to pain in L arm Chair to bed NT Patient refused due to pain in L arm Gait: N/T patient refused all functional mobility even with prosthesis brought in Balance: Static Sitting: Normal Dynamic Sitting: Normal Static Standing: NT due to L humeral fracture and absence of R BKA Dynamic Standing: NT due to L humeral fracture and absence of R BKA This is a summary of care. No skilled physical therapy services provided for this documentation. ASSESSMENT: Patient was admitted due to humeral fracture L UE, due to patient refusal unable to met goals set at time of IE. Patient tolerated bed exercises only for one treatment otherwise refused all functional mobility and transfers. DISCHARGE PLAN/RECOMMENDATIONS: Patient to be discharged to [facility] per MD order.
[2019-12-20 10:49] VITALS: BP 134/73; PULSE 85
[2019-12-20] MEDS: Carvedilol 12.5 MG TAB 25 MG PO ×2 (10:58→21:18)
[2019-12-20] MEDS: Magnesium Citrate 300 ML BTL PO (10:58)
--- NOTE | 2019-12-20 11:54 | DSE_ITS ---
Date of service: 12/21/19 Time of Service: 10:29 DS: Diagnosis Discharge Diagnosis (1) Fracture of humerus, left, closed: Status: Acute (2) Cardiomyopathy, ischemic: Status: Acute (3) REESE (acute kidney injury): Status: Acute (4) Peripheral vascular disease: Status: Chronic (5) Anemia in chronic kidney disease: Status: Acute Discharge Plan Disposition Patient Disposition: SNF (LEVEL 1) [facility] Condition: Stable Discharge Details Chief Complaint: Orthopedic Clinical Impression: Fracture of humerus, left, closed Reason For Visit: HUMERUS FRACTURE LEFT Admit Date/Time: 12/18/19 09:56 Admit Provider: Jhon Heller Attending Provider: Jhon Heller Primary Care Provider: Ashley Spain ED Provider: Delroy Rangel Hospital Course Hospital Course: This is a 74-year-old male patient who sustained a mechanical fall at home injuring his left arm sustaining a mildly displaced left humeral fracture. Orthopedics did evaluate him and made recommendations he has been wearing sling he has been refusing narcotic pain management stating it has not helped him he has been taking scheduled Tylenol he does appear comfortable he typically uses oxycodone at home for chronic pain. He has been working with physical therapy and will not be able to safely be discharged to home. Case management has been following and a bed has been secured at [facility] and rehab. Hospital course also notable for exacerbation of his heart failure. Apparently he had stopped his diuretics a few weeks ago because he was tired of peeing hi mself he was placed on a Lasix drip with good diuresis down 5 kg since admission he was started back on his Bumex. His BUN and creatinine did rise but began to improve prior to discharge with his creatinine down to 1.7 from 1.8. He is followed outpatient by Dr Zamudio and per last note in October 2019, last EF 30- 35% and pt not interested in ICD therapy. plan to continue losartan 25 mg daily, carvedilol 25 mg BID, crestor and asa. we will resume bumex. I do not feel need to add spironalactone at this time as his exacerbation is likely d/t medication compliance issues rather than treatment failure, this will ultimately be up to his credit consultant. discussed low salt diet again, which he admits he is not compliant with. he did have a small bowel movement but did not feel well enough for discharge as planned d/t bowel management. He will be kept one more night prior to discharge to ensure constipation resolved. bowels have moved, his kline catheter has been discontinued. monitor closely for signs of retention after discharge. case discussed with Dr Heller who is in agreement greater than 35 minutes spent on DC. Home Meds and New Rx's Prescriptions: New sennosides [Senokot] 8.6 mg Tablet 1 tab PO BID Qty: 0 RF: 0 polyethylene glycol 3350 17 gram Powder In Packet 17 g PO BID Qty: 0 RF: 0 bumetanide 1 mg Tablet 2 mg PO DAILY Qty: 0 RF: 0 Continued aspirin 81 mg tablet,chewable 81 mg PO HS RF: 0 ascorbic acid (vitamin C) 500 mg tablet 500 mg PO DAILY RF: 0 polyethylene glycol 3350 17 gram/dose powder 17 gm PO DAILY RF: 0 losartan 25 mg tablet 25 mg PO DAILY Qty: 30 RF: 11 oxycodone 5 mg tablet 5 mg PO Q4H PRNRF: 0 nitroglycerin 0.4 mg tablet, sublingual 0.4 mg SL ONCE PRN (Reason: chest pain) Qty: 14 RF: 8 carvedilol 25 mg tablet 25 mg PO Q12H Qty: 180 RF: 6 rosuvastatin 20 mg tablet 20 mg PO DAILY RF: 0 Discharge Instructions Instructions: Arm Fracture in Adults (DC) Additional Instructions: continue to use the sling or a cuff and collar for relative immobilization of the left shoulder pillow or blankets behind the elbow to prevent extension through the fracture pain management as needed. bowel management. report symptoms of urinary retention. Cryo/Cuff for the left arm for comfort. repeat an x-ray in a week to make sure that there is been no change in the positioning of the fracture Stand Alone Forms: Nursing Discharge Form Referrals: Ashley Spain [Primary Care Provider] - 01/01/20 1:00 pm (2 weeks) Tim Pike MD [ [facility] STAFF PHYSICIAN] - 12/28/19 12:00 pm (one week, needs repeat xray) Activity:: Activity as Tolerated Equipment/Supplies:: No Equipment Needed Diet:: Carb Counting Discharge Orders Discharge Orders: Discharge Order (Routine); Ordered 12/21/19 Ordered By: Asuncion Rodríguez Other Ambulatory Orders: XR shoulder LT complete 2+V (Routine) Timeframe: 1 Week Location: None Selected Ordered By: Asuncion Rodríguez Discharge Data Discharge Date/Time-TO BE ENTERED AT DEPARTURE: 12/21/19 12:18 DS: Summary Status at Discharge Functional status at discharge: bed bound Overall status at discharge: patient is not back to baseline Mental Status: mental status grossly normal Speech and Movement: speech and movement normal Mood: congruent mood Affect: normal affect Exam Psych Mental Status: mental status grossly normal Speech and Movement: speech and movement normal Mood: congruent mood Affect: normal affect DS: Data Vitals/I&O Vitals and I&O: Vital Signs Temperature 36.1 C L 12/20/19 07:25 Temperature Source Tympanic 12/20/19 07:25 Pulse 85 12/20/19 10:49 Pulse Rhythm Regular 12/20/19 09:03 Respiratory Rate 17 12/20/19 07:25 Respiratory Effort 12/20/19 09:03 Respiratory Depth Normal 12/20/19 09:03 Respiratory Pattern Normal 12/20/19 09:03 Blood Pressure 134/73 12/20/19 10:49 Blood Pressure Position Supine 12/17/19 07:13 Pulse Oximetry 96 12/20/19 07:25 Oxygen Delivery Method Room Air 12/20/19 07:25 Oxygen Flow Rate 0 12/20/19 07:25 Pain Level 1 12/20/19 09:12 Comment 12/20/19 00:40 Intake & Output 12/19/19 12/19/19 12/20/19 11:59 23:59 11:59 Intake Total 86.833 / 826.833 740 / 826.833 460 / 460 Output Total 3150 / 4350 1200 / 4350 1700 / 1700 Balance -3063.167 / -3523.167 -460 / -3523.167 -1240 / -1240 Weight 82.7 kg 81.6 kg Intake: IV 86.833 / 86.833 Oral 740 / 740 460 / 460 Output: Urine 3150 / 4350 1200 / 4350 1700 / 1700 Other: Urine Color Pale Straw Yellow Yellow Urine Appearance Clear Clear Clear Data Completed and Pending Labs on day of discharge: Labs from last 24 hours 12/20/19 12/20/19 06:15 06:15 WBC 4.72 RBC 3.84 L Hgb 12.5 L Hct 36.8 L MCV 95.8 H MCH 32.6 MCHC 34.0 RDW 13.4 Plt Count 104 L MPV 9.8 Immature Gran % 0.2 Neutrophils % 67.8 Lymphocytes % 19.3 Monocytes % 10.2 Eosinophils % 2.3 Basophils % 0.2 Absolute Neutrophils 3.20 Absolute Lymphocytes 0.91 L Absolute Monocytes 0.48 Absolute Eosinophils 0.11 Absolute Basophils 0.01 Sodium 138 Potassium 4.3 Chloride 102 Carbon Dioxide 27.0 Anion Gap 9.0 BUN 47 H Creatinine 1.77 H Estimated GFR/1.73 m2 37.69 Glucose 122 H Calcium 8.9 NT-Pro-B Natriuret Pep 04955 H [facility] Medical History Anemia due to chronic kidney disease (Acute) Aortic stenosis (Chronic) ASHD (arteriosclerotic heart disease) (Acute) BPH (benign prostatic hyperplasia) (Chronic) Cardiomyopathy, dilated (Acute) Cardiomyopathy, ischemic (Acute) Chronic kidney disease, stage 3 (Acute) COPD (chronic obstructive pulmonary disease) (Chronic) Depression (Chronic) DNR (do not resuscitate) (Acute) Hx of osteomyelitis (Acute) Hyperlipidemia (Acute) Hypertension (Chronic) Hypoalbuminemia (Acute) Left ventricular systolic dysfunction (Acute) Leg edema, left (Acute) Nonproliferative diabetic retinopathy (Acute) Old non-ST elevation myocardial infarction (NSTEMI) (Acute) Peripheral vascular disease (Chronic) Phantom limb (syndrome) (Acute) Psoriasis of scalp (Acute) Shoulder pain, left (Acute) Systemic inflammatory response syndrome, unspecified (Acute) Thrombocytopenia (Chronic) Tobacco abuse (Acute) Type 2 diabetes mellitus with polyneuropathy (Acute) Surgical History H/O heart artery stent (Chronic) History of amputation of lesser toe of right foot (Acute) Hx of aortic valve replacement (Acute) Hx of right BKA (Acute) S/P CABG x 3 (Acute) Family History Mother Heart disease Social History Smoking/Tobacco Use Status: Current every day Tobacco Type: cigarettes Years smoked: 63 Counseling given: patient declined Alcohol Intake: current Alcohol Intake frequency: a few times a week Alcohol type: wine Drug use: Never Substance use type: does not use Additional Social history: lives
[2019-12-20] MEDS: Insulin Aspart 300 UNITS/3 ML PEN SC ×2 (12:09→17:22)
[2019-12-20] MEDS: Bisacodyl 10 MG SUPP PR (13:01)
--- NOTE | 2019-12-20 13:42 | PDOC.CMPRO ---
- If Service Date Differs Date of service: 12/20/19 Time of Service: 13:42 Care Management Progress Note Care Management Progress Note S/O: Jakub was lying in bed when CM met with him. He is constipated and not feeling well because of it. After a bowel program was initiated, Jakub was able to have a small BM but he stated that he feels too weak to go to [facility] today.Plans to transfer to [facility] have been postponed until tomorrow. A: Jakub is a 74 year old man admitted on 12/17/19 with a fractured humerus P: Jakub will likely be transferred to [facility] when medically stable. A referral was sent by [facility] with a tentative bed offer received, pending Medicare approval. CM will coordinate w/c van with admissions at [facility] upon his discharge. CM will continue to support patient, family and discharge planning concerns.
[2019-12-20] MEDS: oxyCODONE 5 MG TAB PO (14:35)
--- NOTE | 2019-12-20 14:51 | W.PM.PROGNOT ---
Date of Service Date of service: 12/20/19 Time of Service: 14:51 Assessment and Plan Assessment and plan (1) Fracture of humerus, left, closed: Status: Acute Assessment and plan: patient reports no improvement with oral narcotics in pain so refusing to take them. will schedule tylenol, leave them prn if he wants. continue sling, PT and f/u with orthopedics outpatient Qualifiers: Encounter type: initial encounter Humerus Location: surgical neck Fracture morphology: unspecified fracture morphology Fracture alignment: nondisplaced Qualified Code(s): S42.215A - Unspecified nondisplaced fracture of surgical neck of left humerus, initial encounter for closed fracture (2) Cardiomyopathy, ischemic: Status: Acute Assessment and plan: improved will continue bumex 2 mg po daily. continue I&O, continue daily weights. He is followed outpatient by Dr Zamudio and per last note in October 2019, last EF 30-35% and pt not interested in ICD therapy. plan to continue losartan 25 mg daily, carvedilol 25 mg BID, crestor and asa. we will stop lasix drip and resume bumex. 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 discussed low salt diet again, which he admits he is not compliant with. (3) REESE (acute kidney injury): Status: Acute Assessment and plan: BUN and creatinine improved, will continue oral bumex. monitor kidney functions closely and adjust medications as needed. renal dosing as needed, avoid nephrotoxic drugs. check BMP in am (4) Peripheral vascular disease: Status: Chronic Assessment and plan: s/p right BKA and left MTA. will continue asa, (5) Anemia in chronic kidney disease: Status: Acute Assessment and plan: will replace iron, no signs of bleeding. will continue to monitor, appears stable. (6) Constipation: Status: Acute Assessment and plan: bowel management, will add mag citrate and dulcolax suppository. (7) Discharge planning issues: Status: Acute Assessment and plan: will be discharged to [facility] rehab when constipation resolved. was scheduled for today but will be delayed to tomorrow. Subjective Subjective Patient reports: still having pain, tolerating a regular diet and no bowel movement Interval history since last seen: patient with c/o constipation. no vomiting or abdominal pain. no fevers, is tolerating an oral diet with no abdominal pain. Exam Const General: cooperative, healthy appearing, comfortable, no acute distress and well developed Nutritional Appearance: average body habitus Orientation: alert, awake and oriented x3 Limitations: other limitations (hard of hearing) HENMT Head: normal to inspection, normocephalic and atraumatic Mouth: oral mucosae normal Cardio Jugular venous pressure: no JVD Rate: regular rate Heart Sounds: murmur systolic harsh GI Inspection: normal to inspection Palpation: soft Auscultation: normal bowel sounds General: other (kline draining clear yellow urine) Skin General skin exam: no rashes or lesions noted Neuro General: patient alert, patient awake and patient oriented x3 Speech: speech normal Gait: gait assisted Method: other (prosthetic leg) Motor: muscle tone normal throughout Extrem General: amputation noted Below the knee: right and Transmetatarsal: left (with improved edema) Objective Objective Clinical Data: Abnormal lab results 12/20/19 12/20/19 Range/Units 06:15 06:15 RBC 3.84 L (4.50-6.00) m/cumm Hgb 12.5 L (13.5-17.5) g/dL Hct 36.8 L (40.0-50.0) % MCV 95.8 H (80-95) fL Plt Count 104 L (130-400) x1000/uL Absolute Lymphocytes 0.91 L (1.2-3.4) k/cumm BUN 47 H (7-18) mg/dL Creatinine 1.77 H (0.70-1.30) mg/dL Glucose 122 H (74-106) mg/dL NT-Pro-B Natriuret Pep 20178 H (<300) pg/mL Vital Signs Temperature 36.1 C L 12/20/19 07:25 Temperature Source Tympanic 12/20/19 07:25 Pulse 85 12/20/19 10:49 Pulse Rhythm Regular 12/20/19 09:03 Respiratory Rate 17 12/20/19 07:25 Respiratory Effort 12/20/19 09:03 Respiratory Depth Normal 12/20/19 09:03 Respiratory Pattern Normal 12/20/19 09:03 Blood Pressure 134/73 12/20/19 10:49 Blood Pressure Position Supine 12/17/19 07:13 Pulse Oximetry 96 12/20/19 07:25 Oxygen Delivery Method Room Air 12/20/19 07:25 Oxygen Flow Rate 0 12/20/19 07:25 Pain Level 7 12/20/19 14:35 Comment 12/20/19 00:40 Intake & Output 12/19/19 12/20/19 12/20/19 23:59 11:59 23:59 Intake Total 740 / 826.833 460 / 700 240 / 700 Output Total 1200 / 4350 1700 / 2350 650 / 2350 Balance -460 / -3523.167 -1240 / -1650 -410 / -1650 Weight 81.6 kg Intake: Oral 740 / 740 460 / 700 240 / 700 Output: Urine 1200 / 4350 1700 / 2350 650 / 2350 Other: Urine Color Straw Yellow Yellow Urine Appearance Clear Clear Clear Laboratory Results WBC 4.72 k/cumm (4.4-10.8) 12/20/19 06:15 RBC 3.84 m/cumm (4.50-6.00) L 12/20/19 06:15 Hgb 12.5 g/dL (13.5-17.5) L 12/20/19 06:15 Hct 36.8 % (40.0-50.0) L 12/20/19 06:15 MCV 95.8 fL (80-95) H 12/20/19 06:15 MCH 32.6 pg (27.0-33.0) 12/20/19 06:15 MCHC 34.0 g/dL (32.0-36.0) 12/20/19 06:15 RDW 13.4 % (11.8-14.1) 12/20/19 06:15 Plt Count 104 x1000/uL (130-400) L 12/20/19 06:15 MPV 9.8 fL (8.0-11.0) 12/20/19 06:15 Immature Gran % 0.2 % 12/20/19 06:15 Neutrophils % 67.8 12/20/19 06:15 Lymphocytes % 19.3 12/20/19 06:15 Monocytes % 10.2 12/20/19 06:15 Eosinophils % 2.3 12/20/19 06:15 Basophils % 0.2 12/20/19 06:15 Absolute Neutrophils 3.20 k/cumm (1.2-6.7) 12/20/19 06:15 Absolute Lymphocytes 0.91 k/cumm (1.2-3.4) L 12/20/19 06:15 Absolute Monocytes 0.48 k/cumm (0.11-0.7) 12/20/19 06:15 Absolute Eosinophils 0.11 k/cumm (0.0-0.7) 12/20/19 06:15 Absolute Basophils 0.01 k/cumm (0.0-0.2) 12/20/19 06:15 Differential Comment Diff reviewed 12/19/19 06:30 RBC Morphology See below 12/19/19 06:30 Polychromasia Present 12/19/19 06:30 D-Dimer 2032 ng/mlFEU (<500) H 12/18/19 16:05 ABG Sample Site Right radial 12/18/19 16:40 ABG pH 7.36 (7.35-7.45) 12/18/19 16:40 ABG pCO2 39 mmHg (34-47) 12/18/19 16:40 ABG pO2 62 mmHg (83-108) L 12/18/19 16:40 ABG HCO3 22 mmol/L (22-28) 12/18/19 16:40 ABG Total CO2 20 mmol/L (22-29) L 12/18/19 16:40 ABG O2 Saturation 91 % (94-98) L 12/18/19 16:40 ABG Base Excess -3.7 mmol/L (-3-3) L 12/18/19 16:40 Oxygen Liter Flow 3 L 12/18/19 16:40 Sodium 138 mmol/L (136-145) 12/20/19 06:15 Potassium 4.3 mmol/L (3.5-5.1) 12/20/19 06:15 Chloride 102 mmol/L (98-107) 12/20/19 06:15 Carbon Dioxide 27.0 mmol/L (21.0-32.0) 12/20/19 06:15 Anion Gap 9.0 mmol/L (3-11) 12/20/19 06:15 BUN 47 mg/dL (7-18) H 12/20/19 06:15 Creatinine 1.77 mg/dL (0.70-1.30) H 12/20/19 06:15 Estimated GFR/1.73 m2 37.69 (mL/min/1.73m2) 12/20/19 06:15 Glucose 122 mg/dL (74-106) H 12/20/19 06:15 Calcium 8.9 mg/dL (8.5-10.1) 12/20/19 06:15 Magnesium 1.7 mg/dL (1.8-2.4) L 12/18/19 06:26 Iron 62 ug/dL (65-175) L 12/19/19 06:30 TIBC 211 ug/dL (250-450) L 12/19/19 06:30 Ferritin 153 ng/mL (26-388) 12/19/19 06:30 Total Bilirubin 0.8 mg/dL (0.2-1.0) 12/17/19 08:40 AST 25 U/L (15-37) 12/17/19 08:40 ALT 33 U/L (16-63) 12/17/19 08:40 Alkaline Phosphatase 158 U/L (46-116) H 12/17/19 08:40 NT-Pro-B Natriuret Pep 79207 pg/mL (<300) H 12/20/19 06:15 Total Protein 7.2 g/dL (6.4-8.2) 12/17/19 08:40 Albumin 3.2 g/dL (3.4-5.0) L 12/17/19 08:40 Vitamin B12 219 pg/mL (193-986) 12/19/19 06:30 Folate 18.4 ng/mL (8.6-20.0) 12/19/19 06:30 COVID-19 PCR Negative (Negative) 12/17/19 08:50 Nasopharyn COVID-19 PCR Not Applicable 12/17/19 08:50 Ref Test Perform Site [facility] hospital lab 12/17/19 08:50
[2019-12-20 17:03] VITALS: BP 136/80; PULSE 66; TEMP 35.3; O2SAT 93
[2019-12-20 20:00] VITALS: BP 114/70; PULSE 65; RESP 18; TEMP 37.2; O2SAT 94
[2019-12-20] MEDS: MORPHine 2 MG/ML SYR IVP (21:18)
[2019-12-20] MEDS: Aspirin 81 MG CHEW PO (21:18)
[2019-12-20] MEDS: Normal Saline Flush 10 ML SYR IVP (21:19)
[2019-12-21 05:41] VITALS: BP 146/76; PULSE 64; RESP 18; TEMP 35.2; O2SAT 96
[2019-12-21 07:26] VITALS: BP 113/66; PULSE 65; RESP 17; TEMP 36.4; O2SAT 95
[2019-12-21] MEDS: Budesonide/Formoterol 80/4.5 6.9 GM 60 PUFF INH IH (07:59)
[2019-12-21] MEDS: Polyethylene Glycol 3350 17 GM PACKET PO (08:39)
[2019-12-21] MEDS: Rosuvastatin 10 MG TAB 20 MG PO (08:39)
[2019-12-21] MEDS: Acetaminophen 325 MG TAB 650 MG PO ×2 (08:40→11:30)
[2019-12-21] MEDS: guaiFENesin 600 MG TABCR PO (08:40)
[2019-12-21] MEDS: Bumetanide 1 MG TAB 2 MG PO (08:40)
[2019-12-21] MEDS: Ascorbic Acid 500 MG TAB PO (08:41)
[2019-12-21] MEDS: Insulin Aspart 300 UNITS/3 ML PEN SC ×2 (08:41→11:29)
[2019-12-21] MEDS: Senna TAB 1 TAB PO (08:41)
[2019-12-21] MEDS: Heparin 5,000 UNITS/ML VIAL 5000 UNITS SC (10:22)
[2019-12-21] MEDS: Carvedilol 12.5 MG TAB 25 MG PO (10:22)
--- NOTE | 2019-12-21 14:10 | PDOC.CMDIS ---
- If Service Date Differs Date of service: 12/21/19 Time of Service: 14:10 LACE Index Scoring Tool - Questions: Length of Stay (in days): 3 Acuity (Admit via E.D.?): Yes Comorbidities: PVD, Diabetes w/o Complication, Liver or Renal Disease E.D. Visits: 1 - Answers: Total Score: 12 Risk of Readmission: High Risk Care Management Discharge Reason for Hospitalization: fracture left humerus Discharge Plan: Jakub will be transferred to [facility] for short term rehab folowing his fractured humerus. He will follow up with the staff and providers at the facility [facility] Patient/Family Education Needs: Expectations, limitations and plan of care. Services Needed at Discharge: Group Home Facility, Transportation
== END 2019-12-21 12:18 | disposition skilled nursing facility (03) | DRG 563 ==
LOC: ER 09:10 → MS 09:58
PROVIDERS: Nurse Practitioner Family; Admitting Provider Internal Medicine; Emergency Provider Emergency Medicine; PCP Nurse Practitioner Family; Visit Provider Internal Medicine
DX: S42.292A Other displaced fracture of upper end of left humerus, initial encounter for closed fracture (principal); I67.89 Other cerebrovascular disease; N17.9 Acute kidney failure, unspecified; S42.302A Unspecified fracture of shaft of humerus, left arm, initial encounter for closed fracture; M25.512 Pain in left shoulder; R06.02 Shortness of breath; N18.3 Chronic kidney disease, stage 3 (moderate); D63.1 Anemia in chronic kidney disease; I25.5 Ischemic cardiomyopathy; J44.9 Chronic obstructive pulmonary disease, unspecified; W06.XXXA Fall from bed, initial encounter; Y92.013 Bedroom of single-family (private) house as the place of occurrence of the external cause; I10 Essential (primary) hypertension; I25.10 Atherosclerotic heart disease of native coronary artery without angina pectoris; Z95.1 Presence of aortocoronary bypass graft; F17.210 Nicotine dependence, cigarettes, uncomplicated; G62.9 Polyneuropathy, unspecified; I73.9 Peripheral vascular disease, unspecified; Z89.511 Acquired absence of right leg below knee; Z89.432 Acquired absence of left foot; Z71.3 Dietary counseling and surveillance
CPT/HCPCS: 36415; 76942; 80048; 80053; 82805; 93005; 94640; 96374; 97110; 97163; 97167; 97535; 99222; 99223; 99233; 99239; 99253; 99285; U0003; 36600; 70450; 71045; 73030; 73060; 73070; 82607; 82728; 82746; 83540; 83550; 83735; 83880; 85025; 85379; 93010; 94667; 99220; G0378; J1644; J1885; J1940; J2270; J3490; J7620; L3650

== ENCOUNTER 2019-12-28 16:42 | Outpatient (REF) | payer SELFPAY ==
[2019-12-29 15:37] LABS: COVID-19 RT-PCR Result NEGATIVE (Negative)
== END 2019-12-28 17:02 ==
LOC: LBN 16:42
PROVIDERS: PCP Nurse Practitioner Family; Visit Provider Nurse Practitioner Adult Health
DX: Z20.828 Contact with and (suspected) exposure to other viral communicable diseases (principal)
CPT/HCPCS: U0003

== ENCOUNTER 2020-01-04 15:57 | Outpatient (REF) | payer SELFPAY ==
[2020-01-05 18:50] LABS: COVID-19 RT-PCR UVMMC Result Negative (Negative)
== END 2020-01-04 16:17 ==
LOC: LBN 15:57
PROVIDERS: PCP Nurse Practitioner Family; Visit Provider Nurse Practitioner Adult Health
DX: Z03.818 Encounter for observation for suspected exposure to other biological agents ruled out (principal)
CPT/HCPCS: U0003

== ENCOUNTER 2020-01-29 11:30 | Outpatient (CLI) | payer MEDICARE, MEDICAID, SELFPAY ==
--- NOTE | 2020-01-29 11:15 | DI.RAD_ITS ---
EXAM: XR SHOULDER LT COMPLETE 2+V CLINICAL HISTORY: LEFT HUMERUS FRACTURE. TECHNIQUE: 2D digital imaging was performed. COMPARISON: CR,XR XR SHOULDER LT COMPLETE 2+V from 12/17/2019 CR XR HUMERUS LT from 12/25/2019 FINDINGS: There has been no change in the alignment of the comminuted fracture of the humeral head and proximal humeral shaft. Degenerative changes are noted at the glenohumeral joint. The humeral head appears normally positioned. Soft tissue calcifications are again noted beneath the clavicle. There is assistant coach gui distal clavicular deformity. IMPRESSION: Stable fracture alignment. Mild interval increase in healing. DATA REPOSITORY: RADIATION DOSE DELIVERED:
== END 2020-01-29 11:50 ==
PROVIDERS: PCP Nurse Practitioner Family; Referring Provider Nurse Practitioner Family; Visit Provider Student in an Organized Health Care Education/Training Program
DX: S42.292D Other displaced fracture of upper end of left humerus, subsequent encounter for fracture with routine healing (principal); S42.202D Unspecified fracture of upper end of left humerus, subsequent encounter for fracture with routine healing; X58.XXXD Exposure to other specified factors, subsequent encounter; E11.42 Type 2 diabetes mellitus with diabetic polyneuropathy; E11.22 Type 2 diabetes mellitus with diabetic chronic kidney disease; N18.3 Chronic kidney disease, stage 3 (moderate); I12.9 Hypertensive chronic kidney disease with stage 1 through stage 4 chronic kidney disease, or unspecified chronic kidney disease; J44.9 Chronic obstructive pulmonary disease, unspecified
CPT/HCPCS: 99213; 73030